=== PATIENT | male | born 1980 | race Hispanic/Latino ===

== ENCOUNTER 2017-06-18 17:33 | Inpatient (IN) | payer OTHER, SELFPAY ==
[~2017-06-18] VITALS: Ht 188 cm; Wt 113.4 kg
[2017-06-18] MEDS ORDERED: ZESTRIL10 MG PO (18:35)
[2017-06-18] MEDS ORDERED: ATORVASTATIN CA10 MG PO (18:35)
[2017-06-18] MEDS ORDERED: GLUCOPHAGE1000 MG PO (18:35)
[2017-06-18] MEDS ORDERED: SULFAMETHOXAZO1 EAC1 PO (18:36)
[2017-06-18] MEDS ORDERED: KEFLEX500 MG PO (18:36)
[2017-06-18] MEDS ORDERED: MINOCIN100 MG PO (18:36)
--- NOTE | 2017-06-18 19:10 | NUR ---
DIRECT ADMIT TO FLOOR @ 1800 FOR MONICA ABSCESS TO LEFT INNER THIGH, LEFT SIDE OF SCROTUM APPEARS TO BE DRAINING PURULENT DRAINAGE, PROVIDED PATIENT WITH GAUZE AND MARILU PADS TO SOAK UP DRAINAGE. NOTED A POSSIBLE VENOUS ULCER TO RIGHT SIDE OF LOWER LEG. PATIENT SAID " IT HAS BEEN THERE FOR OVER A YEAR". PROVIDED CHUCKS PAD FOR DRAINAGE. DISCUSSED WITH PATIENT BEING NPO, PATIENT VERBALIZED UNDERSTANDING. IV STARTED TO LEFT FA 20 G, [facility] AND SENT. 1L LR BOLUS INFUSING. LUNG SOUNDS CLEAR, HR REG. PATIENT IS DM TYPE 2, WILL BE INFUSING D5LR IV CONTINUOUSLY. PATIENT RATES PAIN 5/10 ON PAIN SCALE, REPORTS PAIN COMES AND GOES, ADMINISTERED 2MG IV MORPHINE. NO IMPROVEMENT WITH PAIN, REPORT HANDOFF TO BRIDGER SIERRA WHO WILL RESUME CARE.
--- NOTE | 2017-06-18 20:19 | NUR ---
RECIEVED REPORT FROM DAY SHIFT. PATIENT IS RESTIN IN BED WATCHING TV. PATIENT RATES PAIN AT A 4/10. DENIES THE NEED FOR PAIN MEDICATION. PATIENT IS CURRENTLY RECEIVEIN G A BOLUS. CALL LIGHT IN REACH.
--- NOTE | 2017-06-18 23:20 | NUR ---
PATIENT ASSESMENT COMPLETED. PATIENT GIVEN PRN PAIN MEDICATION PER ORDER. PATIENT PRN PAIN MEDICATION FOR 5/10 PAIN IN GROIN AREA. PATIENT GIVEN EVENING MEDICATIONS PER ORDER. PATIENT HAS FAMILY IN THE BEDSIDE. PATIENT IS AAOX3. PATIENT DENIES ANY FURTHER NEEDS AT THIS TIME. CALL LIGHT IN REACH.
--- NOTE | 2017-06-19 00:23 | NUR ---
PATIENT PROVIDED WITH URINAL. PATIENT ABLE TO VOID QS. PATIENT DENIES ANY FURTHER NEEDS. CALL LIGHT IN REACH.
--- NOTE | 2017-06-19 03:00 | NUR ---
PATIENT GIVEN MEDICATIONS PER ORDER. PATIENT GIVEN PRN PAIN MEDICATION FOR 5/10 SCROTAL PAIN. PATIENT DENIES ANY FURTHER NEEDS. CALL LIGHT IS WITHIN REACH.
--- NOTE | 2017-06-19 04:32 | NUR ---
PATIENT IS RESTING IN BED WITH EYES CLOSED, RR17. CALL LIGHT IN REACH.
--- NOTE | 2017-06-19 05:25 | NUR ---
PATIENT RESTED WELL THROUGHOUT THE SHIFT. PATIENT IS AAO X3. PATIENT RECEIVE X1 PRN TORADOL AND X1 PRN MORPHINE FOR PAIN IN SCROTAL AREA. PATIENT IS A SBA AND IS STEADY ON HIS FEET.
--- NOTE | 2017-06-19 06:38 | NUR ---
PATIENT RATES PAIN AT A 3/10 AND DENIES THE NEED FOR PAIN MEDICATION AT THIS TIME. PATIENTS CONSENT SIGNED AND PLACED ON THE FRONT OF THE CHART. PATIENT HAS LR WITH STRAIGHT TUBING AND PRE OP CHECKLIST STARTED. PATIENT DENIES ANY NEEDS CALL LIGHT IN REACH.
--- NOTE | 2017-06-19 08:00 | NUR ---
PATIENT REFUSED TO SHOWER, STATED " THIS MORPHINE HAS GIVEN ME A REAL HEADACHE AND TO SHOWER AND HAVE TO STAND WOULD BE JUST TOO MUCH". PROVIDED PATIENT WITH WIPES, RADHA FUNEZ ASSISTED WITH WIPE DOWN. LINENS CHANGED, FRESH GOWN. LR WITH ST. TUBING HANGING. IV ANTIBIOTICS INFUSING. ADMINISTERED IV TORADOL AND 4MG OF IV MORPHINE THIS MORNING, CBG 251 ADMINISTERED 5 UNITS OF INSULIN. PROVIDED EDUCATION. PLACED ABD PAD BETWEEN LEFT INNER THIGH AND SCROTUM SECONDARY TO ABSCESS DRAINING, NO ODOR NOTED, DRAINAGE APPEARS SEROSANGUINIOUS. DISCUSSED WHAT TO EXPECT AFTER SURGERY AND INSTRUCTED PATIENT TO USE IS.
--- NOTE | 2017-06-19 10:08 | NUR ---
PT IS RESTING IN BED CURRENTLY TALKING TO ANETHESIA NURSE, CASIMIRO. VITALS TAKEN AND PT HAS HAD SURGICAL WIPE DOWN. VITALS TAKEN. PT DID NOT NEED ANYTHING AT THE MOMENT
--- NOTE | 2017-06-19 11:11 | NUR ---
MED REC COMPLETE WITH LAURI REFILL HISTORY. ATORVASTATIN, LISINOPRIL, METFORMIN, AND MINOCYCLINE PRESCRIBED ON , BUT NOT YET PICKED UP BY PATIENT.
--- NOTE | 2017-06-19 14:22 | NUR ---
PATIENT LEFT FOR SURGERY 1400, IV ANTIBIOTIC SENT WITH OR NURSE MANUEL. 3 UNITS ADMINISTER FOR CBG 191 PER SLIDING SCALE. RATES PAIN 6/10 ON PAIN SCALE, DENIES NEED FOR PAIN MEDICATION.
--- NOTE | 2017-06-19 15:06 | NUR ---
PT IS STILL IN SURGERY
--- NOTE | 2017-06-19 15:40 | NUR ---
06/19/17 1540 Sydney Koch 1536 PATIENT ARRIVES TO PACU UNRESPONSIVE TO VERBAL OR TACTILE STIMULI. ORAL AIRWAY IN PLACE, MASK AT 10 LITERS.
--- NOTE | 2017-06-19 16:30 | NUR ---
PATIENT BACK TO ROOM, REPORT HANDOFF FROM SUMEET SIERRA. PATIENT AWAKE, RATES PAIN 0/10 ON PAIN SCALE. CAN MOVE KNEES AND LOWER LEGS BACK AND FORTH ON BED, DENIES FEELING SENSATION OF TOES. NOTED SOME CARLOS RED DRAINAGE TO GAUZE IN NET UNDERWEAR. PROVIDED PATIENT WITH ICE WATER AND JELLO. NO COMPLAINTS OF NAUSEA, VS STABLE.
--- NOTE | 2017-06-19 17:09 | NUR ---
CBG 145, IV FLUIDS INFUSING. PATIENT DROWSY. RESTING WITH EYES CLOSED. NO COMPLAINTS OF PAIN AT THIS TIME. VS STABLE.
--- NOTE | 2017-06-19 17:44 | NUR ---
PATIENT EATING SOLID FOOD, NO COMPLAINTS OF NAUSEA, CONTINUES TO RATE PAIN 0/10 ON PAIN SCALE. PATIENT STATED " I AM STARTING TO HAVE THE URGE TO PEE, WILL TRY AFTER I AM DONE EATING." MOTHER AT BEDSIDE. SOME NEW DRAINAGE TO PAD, NOT SATURATED AT THIS TIME. NOTED NEW WOUND CARE ORDERS.
--- NOTE | 2017-06-19 18:09 | NUR ---
PT IS RESTING IN BED WITH CALL LIGHT IN REACH. PT ATE DINNER AND IS WORKING ON DRINKING FLUIDS, HAS NOT URINATED YET.
--- NOTE | 2017-06-19 18:37 | NUR ---
PATIENT ATTEMPTED TO URINATE, STATES "THE URGE IS THERE, PLEASE GIVE ME ANOTHER 30 MINUTES" IS NOW DRINKING MORE WATER. CHANGED GAUZE TO SURGICAL SITES, GAUZE LIGHTLY SATURATED WITH CARLOS RED BLOOD. PATIENT TOLERATED TX WELL.
--- NOTE | 2017-06-19 18:50 | NUR ---
PATIENT STATES HIS PAIN IS 3/10 ON PAIN SCALE. ADMINISTERED ONE TAB OF PERCOCET PER PATIENT REQUEST, HE STATED " I THINK 2 IS TOO MUCH, LETS START WITH ONE". PROVIDED FRESH ICE WATER.
--- NOTE | 2017-06-19 23:25 | NUR ---
PATIENT SITS AT SIDE OF BED, PATIENT THEN STANDS AT SIDE OF BED. AMBULATES IN ROOM AT SIDE OF BED.
--- NOTE | 2017-06-19 23:26 | NUR ---
DRESSING TO LEFT GROIN AND PERIANAL I&D SITES CHANGED. GAUZE FLUFFS PLACED WITH ABD PADS COVERING AND SECURED WITH MESH UNDERWEAR.
--- NOTE | 2017-06-20 02:20 | NUR ---
PATIENT C/O BREAKTHRU PAIN /, MEDICATED WITH IV MORPHINE. IV ABX STARTED AND BS CHECKED. DRESSING TO GROIN IN PLACE NON SATURATED.
--- NOTE | 2017-06-20 05:41 | NUR ---
PATIENT HAS RESTED WELL DURING THE NIGHT. ADDRESSED PAIN THROUGH OUT THE NIGHT. 1 EPISODE OF BREAK THRU PAIN MEDICATED WITH IV MORPHINE. DRESSING CHANGED X 1 DURING THE NIGHT. SANGUINEOUS DRAINAGE FROM I&D SITES TO LEFT SIDE OF GROIN AND PERINEUM. PATIENT HAS Q6 BLOOD SUGAR CHECKS AND IV ABX INFUSIONS.
--- NOTE | 2017-06-20 07:05 | NUR ---
BEDSIDE HANDOFF REPORT RECEIVED FROM AIR GUN OPERATOR RN. PT SLEEPING, LEFT UNDISTURBED.
--- NOTE | 2017-06-20 08:30 | NUR ---
PT RESTING IN BED. PT STATES PAIN 2/10, WORSE WITH MOVEMENT. PT LUNG SOUNDS CLEAR, ON ROOM AIR. PT BLOOD GLUCOSE 223, GIVEN 3 UNITS SS INSULIN. PT BOWEL TONES ACTIVE, DENIES NAUSEA, TOLERATING ADA DIET. DRESSING TO PERINEAL ABCESS INTACT, SMALL AMOUNT OF SEROSANGUINOUS DRAINAGE TO ABD PAD. IV ABX INFUSING. PT WITH SCDS IN PLACE. PT DENIES NEEDS AT THIS TIME.
--- NOTE | 2017-06-20 10:24 | NUR ---
PT IS RESTING IN BED. PT AGREED TO SHOWER AFTER LUNCH. PT ASKED FOR MORE ICE WATER
--- NOTE | 2017-06-20 14:45 | NUR ---
PT ASSISTED WITH SETUP OF SOAP SITZ BATH. PT RATING PAIN 5/10 AFTER SHOWER AND BATH, REQUESTING PAIN MEDICATION, GIVWN 2 TABS NORCO. PT RESTING IN BED. DRESSING APPLIED TO ABCESS WOUNDS. PT VOICING CONCERN OF UPPER THIGH ABCESS NOT DRAINING, STATES IT HURTS AND IS FIRM. WOUND ASSESSED, REDNESS AND SWELLING AROUND DRAIN SITE, APPROXIMATELY 6 IN IN DIAMETER. GROIN AND PERIANAL ABCESS WITH DRAINS INTACT. ABD PAD AND BRIEFS PLACED. PT LUNG SOUNDS CLEAR, ON ROOM AIR. PT TOLERATING ADA DIET, DENIES NAUSEA. UP INDEPENDENT IN ROOM. PT DENIES NEEDS AT THIS TIME.
--- NOTE | 2017-06-20 14:52 | NUR ---
PT HAS SHOWERED AND IS NOW RESTING IN BED. PT COMPLAINED OF PAIN IN GROIN AREA, NURSE AWARE
--- NOTE | 2017-06-20 17:44 | NUR ---
PT GIVEN 4 UNITS SS INSULIN AND 3 UNITS WITH MEALS, BLOOD GLUCOSE 192. PT EATING DINNER. PT STATES PAIN IS SUBSIDING. PT DENIES NEEDS AT THIS TIME.
--- NOTE | 2017-06-20 18:07 | NUR ---
PT ON ROOM AIR, LUNG SOUNDS CLEAR. PT TOLERATING ADA DIET, DENIES NAUSEA. PT AFEBRILE. PT TRANSITIONED TO ORAL ABX. PT SHOWERED AND SITZ BATH COMPLETED. NEW ABD PADS PLACED TO GROIN AND PERINEUM. PT INDEPENDENT IN ROOM. PT VOIDING QS. PAIN MANAGED WITH 2 TABS NORCO.
--- NOTE | 2017-06-20 18:50 | NUR ---
PT IS RESTING IN BED WITH CALL LIGHT IN REACH. PT DID NOT NEED ANYTHING ELSE AT THE MOMENT
--- NOTE | 2017-06-20 19:10 | NUR ---
BEDSIDE REPORT RECEIVED FROM OFFGOING NURSE. PT LYING IN BED WITH SIGNIFICANT OTHER AT BEDSIDE. PT REPORTS HARDNESS AT L GOING I&D SITE, SIGNIFICANT OTHER WONDERING IF SITE APPEARS DIFFERENT FROME EARLIER. SITE ASSESS BY OFFOING NURSE AND THIS POWER GENERATION EQUIPMENT REPAIRER. OFFGOING NURSE CONFIRMS THAT AREA LOOKS THE SAME PREVIOUS ASSESSMENTS. PT DENIES NEEDS AT THIS TIME. CALL LIGHT WITHIN REACH.
--- NOTE | 2017-06-20 20:20 | NUR ---
PT ASSESSMENT COMPELTED. PT RATES PAIN 4-5/10 TO GROIN, MONICA AREA. PRN PAIN MEDICATION ADMINISTERED. ATTENDS IN PLACE, SMALL AMOUNT OF SANGUINOUS DRAINAGE NOTED TO ABD PAD OVER L GROIN. WOUNDS TO RLE DRY. PT INDEPENDENTLY CHECKS SUGAR AND ADMINISTERS INSULIN. ICE WATER REFILLED. PT DENIES OTHER NEEDS AT THIS TIME. CALL LIGHT WITHIN REACH.
--- NOTE | 2017-06-20 23:47 | NUR ---
PT RESTING IN BED WITH EYES CLOSED. RESPIRATIONS EVEN AND UNLABORED. PT APPEARS TO BE SLEEPING. CALL LIGHT WITHIN REACH.
--- NOTE | 2017-06-21 02:35 | NUR ---
PT ASSESSMENT COMPLETED. PT RESTING WITH EYES CLOSED, WAKES EASILY. PT DENIES PAIN. SMALL AMOUNT OF SANGUINOUS DRAINAGE PRESENT TO ABD PADS COVERING I&D SITES. ATTENDS REMAINS IN PLACE. PT DENIES FURTHER NEEDS, CALL LIGHT WITHIN REACH.
--- NOTE | 2017-06-21 04:29 | NUR ---
PT SLEPT THROUGHOUT SHIFT. PRN PAIN MEDICATION GIVEN X 1 AT BEGINNING OF SHIFT. ABD PADS TO GROIN AND PERINEUM WITH SMALL AMOUNT OF RED DRAINAGE PRESENT. PT WEARING ATTENDS TO KEEP ABD PADS IN PLACE. PT DECLINES SITZ BATH THIS SHIFT. USES URINAL INDEPENDENTLY. UO QS.
--- NOTE | 2017-06-21 07:00 | NUR ---
BEDSIDE HANDOFF REPORT RECEIVED FROM PERSONNEL AND PAYROLL TECHNICIAN RN. PT RESTING IN BED.
--- NOTE | 2017-06-21 08:30 | NUR ---
PT RESTING IN BED. PT DENIES PAIN AT REST, RATES PAIN 5/10 WITH ACTIVITY, DISCUSSED PAIN MANAGEMENT WITH PT, PT DENIES NEED FOR MEDICATION AT THIS TIME. PT TOLERATING ADA DIET, DENIES NAUSEA, BLOOD GLUCOSE 179 GIVEN 7 UNITS INSULIN AND 10 UNITS LEVEMIR. PT LUNG SOUNDS CLEAR, ON ROOM AIR. PT DENIES DIZZINESS, INDEPENDENT IN THE ROOM. PT VOIDING QS. BOWLE TONES ACTIVE. PULSES PALPABLE. PT DENIES NEEDS AT THIS TIME. ASSISTED WITH ORDERING BREAKFAST.
[2017-06-21] MEDS ORDERED: MINOCYCLINE HC100 MG PO (09:40)
[2017-06-21] MEDS ORDERED: OXYCODON-ACETA1 EAC2 PO (09:41)
[2017-06-21] MEDS ORDERED: MOTRIN IB200 MG PO (09:45)
[2017-06-21] MEDS ORDERED: NOVOLOG MI100 UNIT/2 SUB-Q (09:45)
[2017-06-21] MEDS ORDERED: NOVOLIN 70100 UNIT/1 SUB-Q (10:23)
--- NOTE | 2017-06-21 11:13 | NUR ---
DISCHARGE INSTRUCTIONS COMPLETED WITH PT. DETAILED EDUCATION ON HEBICLEANSE SITZ BATHS, PROVIDED WITH CLEAN BATH KIT, HEBICLEANSE SOAP AND ABD PADS. PT VERBALIZED UNDERSTANDING OF SITZ. IV CATH REMOVED. VSS. PT TO GET DRESSED AND COLOECT BELONGINGS. PRESCRIPTIONS PROVIDED FOR PERCOCET.
--- NOTE | 2017-07-04 10:25 | DS ---
[facility] [address] [facility] [place], [place] [address] Signed ADMIT DATE: 06/18/2017 DISCHARGE DATE: 06/21/2017 REASON FOR ADMISSION: This 36-year-old white man has insulin-dependent diabetes mellitus and has a hemoglobin A1c level of greater than 10. I was called by ARELY Wooten through Dr. Abdullahi's office as he was noted to have a left medial upper thigh abscess on her outpatient evaluation. He was seen in my office on an urgent walk-in basis at the end of the day and recognized to have significant suppurative changes of the perineum including the l eft medial thigh. It appears that he has longstanding hidradenitis suppurativa, though it has never been characterized that way. He was admitted for further evaluation and care. PHYSICAL EXAMINATION: GENERAL: Pertinent physical exam showed a bearded somewhat obese white man, who looked to be not systemically toxic, so was quite uncomfortable. NECK: Trachea midline. CHEST: Clear. HEART: Regular without murmur. ABDOMEN: Obese and soft. : Examination of perineum showed an abscess in the medial upper inner thigh as well as numerous variably draining sinuses and abscesses of the perineum including the midline posterior scrotal raphae. EXTREMITIES: He had no sign of lower extremity edema. LABORATORY STUDIES: Showed a white count of 8.0, hematocrit of 44.9, platelets of 321,000. Chem profile was not obtained, but fasting blood sugar showed a blood sugar of 192. HOSPITAL COURSE: He was admitted, given broad-spectrum antibiotic meropenem. His electrolytes were evaluated on the evening of admission, which showed a glucose of 321. Sliding-scale insulin schedule was outlined for him. Liver enzymes were noted to be normal. His creatinine was 0.86. The following day, he was found to be well resuscitated and was taken to operation for incision and drainage of the left upper medial thigh abscess as well as unroofing and drainage of other perineal abscesses and sinus tracts. Four yellow vessel loop drains were placed in the perineum and the left upper medial thigh. Postoperatively, he was managed with Sitz baths and continued IV antibiotics. Oral Electronically Signed By: CASIMIRO ESTRADA MD 07/04/17 1025 PATIENT NAME: HAIDER DE LEÓN DISCHARGE SUMMARY DATE OF : 76 PHYSICIAN: CASIMIRO ESTRADA MD REPORT #: [id number] REPORT IS CONFIDENTIAL AND NOT TO BE RELEASED WITHOUT AUTHORIZATION [facility] [address] [place], [place] [address] Signed antibiotics were initiated on postoperative day 1, which included resumption of minocycline 100 mg p.o. daily and Bactrim 1 tablet p.o. b.i.d. Consultation was undertaken with Dr. Valdez to better manage his hyperglycemia. At this point, his serum glucose was in the low 200 range. It appears that the patient has difficulty of achieving a good schedule for blood sugar control on the basis of lack of insurance and other factors, though has seen an deployment specialist in [place] previously. By time of discharge, he is ambulating well, tolerating an ADA solid diet, has good control of the infectious process of the perineum and has tolerated Sitz baths and regular shower. His careful instructions for home care will include Hibiclens showering on a daily basis as well as Sitz baths daily, plain or with Hibiclens for the perineum. He should avoid tight-fitting clothes. An instruction regarding hidradenitis suppurativa was given to him. We will see him back in approximately 2-3 weeks in the office and likely pull drains at that time. I have asked him to make an appointment with Madison Olmstead and Dr. Abdullahi as well in the near future for further consideration of blood sugar control measures. DISCHARGE MEDICATIONS: Will include: Minocycline 100 mg p.o. daily. Percocet 2 tabs p.o. q.4 hours p.r.n. pain #30. Insulin NovoLog type 70/30, 30 units subcutaneously q.a.m. for diabetes. Motrin 600 mg p.o. q.6 hours p.r.n. pain. Continuance of medication including metformin (Glucophage 1000 mg p.o. daily), lisinopril 10 mg p.o. daily, atorvastatin 10 mg p.o. daily, cephalexin 500 mg capsule one p.o. t.i.d. for 10 days, and continuance of Bactrim one tab p.o. b.i.d. for 10 days. FOLLOWUP PLANS: He is to return to see me in 2-3 weeks as described and Madison Olmstead in coming week regarding diabetes. DISCHARGE DIAGNOSES: Acute upper medial left thigh abscess and associated incompletely drained perineal and retro-scrotal abscesses related to hidradenitis suppurativa. Insulin-dependent diabetes mellitus. As regards return to work, he is written to go back to work on June 30, 2017. If there are problems, he will let me know sooner. Electronically Signed By: CASIMIRO ESTRADA MD 07/04/17 1025 PATIENT NAME: HAIDER DE LEÓN DISCHARGE SUMMARY DATE OF : 76 PHYSICIAN: CASIMIRO ESTRADA MD REPORT #: [id number] REPORT IS CONFIDENTIAL AND NOT TO BE RELEASED WITHOUT AUTHORIZATION [address] [place] [address] Signed MD BALDEMAR Jhaveri/Alexys /[id number] cc: ARELY Cordoba Electronically Signed By: CASIMIRO ESTRADA MD 07/04/17 1025 PATIENT NAME: HAIDER DE LEÓN DISCHARGE SUMMARY DATE OF : 76 PHYSICIAN: CASIMIRO ESTRADA MD REPORT #: [id number] REPORT IS CONFIDENTIAL AND NOT TO BE RELEASED WITHOUT AUTHORIZATION
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
--- NOTE | 2017-07-04 10:25 | OR ---
[facility] [address], [place] [address] Signed DATE OF SERVICE: 06/19/2017 PREOPERATIVE DIAGNOSES: Left groin abscess. Multiple perineal abscesses and clinical evidence of hidradenitis suppurativa. Insulin-dependent diabetes mellitus. POSTOPERATIVE DIAGNOSES: Left groin abscess. Multiple perineal abscesses and clinical evidence of hidradenitis suppurativa. Insulin-dependent diabetes mellitus. PROCEDURE: Exam under anesthesia. Incision and drainage of left medial groin abscess with cultures and placement of yellow vessel loop (seton like). Incision and drainage and debridement of perineal abscesses x3 with placement of yellow vessel loop seton. SURGEON: Casimiro Estrada MD. ANESTHESIA: General endotracheal (Casimiro De Guzman CRNA). POSITION: Lithotomy in stirrups. DRAINS: Yellow vessel loops x4. INDICATION: This 36-year-old diabetic man is a patient of Madison Olmstead and Dr. Marc Abdullahi. He has had many years of episodic furuncles and boils of the perineal area with spontaneous drainage and so forth. He was recently seen by Ms. Olmstead at Dr. Abdullahi's office with what appeared to be an abscess in the left medial groin. After conferring with Dr. Abdullahi, referral was made and he was seen in my office yesterday on an urgent basis. Clearly an abscess of the left medial groin is noted. He also had numerous pock cardona of the perineum in several areas of spontaneous weeping and what appeared to be undermining subdermal sinus tracts and abscess formation. He was admitted and given broad-spectrum antibiotics, fluid resuscitation, so forth and here now to undergo exam under anesthesia, as well as drainage of the left groin abscess and drainage and debridement of other perineal sinus tracts and abscesses. He understands well the risks of bleeding, infection, and recurrence critically as this may well represent hidradenitis suppurativa manifestations. He wishes to proceed. Electronically Signed By: CASIMIRO ESTRADA MD 07/04/17 1025 PATIENT NAME: HAIDER DE LEÓN OPERATIVE REPORT DATE OF : 76 PHYSICIAN: CASIMIRO ESTRADA MD REPORT #: [id number] REPORT IS CONFIDENTIAL AND NOT TO BE RELEASED WITHOUT AUTHORIZATION [facility] [address], [place] [address] Signed FINDINGS: The groin abscess clearly was a purulent abscess and not spontaneously draining. There were several other fibrotic perineal sinus tracts that were problematic and application of yellow vessel loop setons to afford improved drainage was undertaken. Four such drains were placed. There was spontaneous drainage of some of the areas particularly in the region of the midline anterior to the anal canal. By conclusion, all infected sinus tracts and abscesses proper have been drained. PROCEDURE: The patient was brought to the operating room, given a general anesthetic in the supine position. The lithotomy position was then assumed. The perineum and groin particularly on the left were prepared with a chlorhexidine solution and draped sterilely. Photographs were taken. Examination of the perineum showed several chronic dermal scarring areas particularly on the right groin area but this was not the area of active infection at this time. There were sev eral sinuses on the left perineum and groin area that were easily undermined with a hemostat showing purulent material. Gram stained and cultures were obtained. In the left groin, proper was a swelling several cm in size for which incision was undertaken with an 11 blade and egress of purulent material was noted. This was Gram stained and cultured as well. A counter incision was made and a yellow vessel loop passed through this area. The undermined areas were highly typical of hidradenitis suppurativa with acute infection. Three sets tunneling areas were drained of their inflammatory fluid and yellow vessel loop was tied in a loop in a seton like configuration. It was ascertained that there were no other undrained on unlooped areas of infection. Fluff gauze were applied to the perineum as were shorts and patient was ultimately returned to neutral position, extubated, and taken to recovery room in good condition. Special note: A spinal anesthetic was given prior to the general anesthetic (single shot spinal) and therefore, his sensation for lower extremity movement remains to be determined. MD BALDEMAR Jhaveri/Momol /[id number] Electronically Signed By: CASIMIRO ESTRADA MD 07/04/17 1025 PATIENT NAME: HAIDER DE LEÓN OPERATIVE REPORT DATE OF : 76 PHYSICIAN: CASIMIRO ESTRADA MD REPORT #: [id number] REPORT IS CONFIDENTIAL AND NOT TO BE RELEASED WITHOUT AUTHORIZATION [address] [address] Signed cc: Dr. Madison Rodriguez PA Electronically Signed By: CASIMIRO ESTRADA MD 07/04/17 1025 PATIENT NAME: HAIDER DE LEÓN OPERATIVE REPORT DATE OF : 76 PHYSICIAN: CASIMIRO ESTRADA MD REPORT #: [id number] REPORT IS CONFIDENTIAL AND NOT TO BE RELEASED WITHOUT AUTHORIZATION
[2017-10-14] MEDS ORDERED: NOVOLOG FL100 UNIT/1 SUB-Q (11:01)
[2017-10-14] MEDS ORDERED: TRESIBA FL100 UNIT/1 (11:02)
== END 2017-06-21 11:45 | disposition home or self-care (01) | DRG 581 ==
LOC: MS 17:33
PROVIDERS: ADMIT Surgery
PROC: 0H99XZZ Drainage of Perineum Skin, External Approach (ICD-10-PCS; 2017-06-19)
PROC: 0H9AXZZ Drainage of Inguinal Skin, External Approach (ICD-10-PCS; principal; 2017-06-19 15:00)
DX: L02.215 Cutaneous abscess of perineum (principal); I10 Essential (primary) hypertension; E78.5 Hyperlipidemia, unspecified; E11.65 Type 2 diabetes mellitus with hyperglycemia; Z79.4 Long term (current) use of insulin; L02.214 Cutaneous abscess of groin; L73.2 Hidradenitis suppurativa
CPT/HCPCS: 00902; 80053; 85025; 87070; 87075; 87076; 87077; 87185; 87186; 87205; 94760; J1100; J1885; J2185; J2250; J2270; J2405; J2704; J2765; J3010; J7120

== ENCOUNTER 2017-10-15 07:05 | Day surgery (SDC) | payer OTHER ==
[~2017-10-15] VITALS: Ht 190.5 cm; Wt 108.9 kg
[~2017-10-15 07:05] MED LIST: ATORVASTATIN CA10 MG PO; GLUCOPHAGE1000 MG PO; KEFLEX500 MG PO; MINOCIN100 MG PO; MINOCYCLINE HC100 MG PO; MOTRIN IB200 MG PO; NOVOLIN 70100 UNIT/1 SUB-Q; NOVOLOG FL100 UNIT/1 SUB-Q; NOVOLOG MI100 UNIT/2 SUB-Q; OXYCODON-ACETA1 EAC2 PO; SULFAMETHOXAZO1 EAC1 PO; TRESIBA FL100 UNIT/1; ZESTRIL10 MG PO
[2017-10-15] MEDS ORDERED: OXYCODON-ACETA1 EAC2 PO (09:49)
--- NOTE | 2017-10-16 16:39 | OR ---
[facility] [address] [place], [place] [address] Signed DATE OF OPERATION: 10/15/2017 SURGEON: Casimiro Estrada MD PREOPERATIVE DIAGNOSES: 1. Advanced hidradenitis suppurativa of the perineum. 2. Recurrent infected subdermal sinuses of perineum. POSTOPERATIVE DIAGNOSES: 1. Advanced hidradenitis suppurativa of the perineum. 2. Recurrent infected subdermal sinuses of perineum. PROCEDURE: 1. Exam under anesthesia. 2. Debridement and drainage of perineal abscess cavities. 3. Placement of yellow vessel loop seton x4. 4. Curettage and debridement of perineal sinuses. ANESTHESIA: General LMA, Chayito Dunbar CRNA and local 15 mL of 0.25% Marcaine with epinephrine. INDICATION: This 37-year-old, white man is well known to me from the past having undergone emergency drainage of advanced perineal abscess of the perineum in May of 2017. Upon close review of his situation, he has had quite obviously hidradenitis suppurativa of the perineum for quite some time. Though he had marked improvement after drainage of complex subdermal abscesses of the perineum and placement of yellow vessel loop drainage setons, he has had recurrent symptoms despite recent antibiotic therapy with Flagyl. Examination in the office recently showed a gush of bloody inflammatory fluid from the left perineal groin crease areas where hidradenitis suppurativa is noted. In hopes of controlling his drainage, consideration has been made for exam under anesthesia with placement of a closed suction drain as appropriate or other indicated procedures as needed. The risks of bleeding, infection, need for additional treatment and so forth were all reviewed with him. He understands and wished to proceed for exam under anesthesia at this time with interventions as appropriate to improve his drainage problem. FINDINGS: Much of the perineum is scarred from prior infectious changes. There is a sinus not connected to any other area in the right perineum and on the left side, several contiguous subdermal infected fluid collections. These were drained, curetted, and Electronically Signed By: CASIMIRO ESTRADA MD 10/16/17 1639 PATIENT NAME: HAIDER DE LEÓN OPERATIVE REPORT DATE OF : 76 PHYSICIAN: CASIMIRO ESTRADA MD REPORT #: [id number] REPORT IS CONFIDENTIAL AND NOT TO BE RELEASED WITHOUT AUTHORIZATION [facility] [address] [place], [place] [address] Signed secured with a yellow vessel loops. One sinus in particular in the upper left groin had a connection to the inguinal area nearly and a yellow vessel loop for drainage was placed there. A close suction drain was not feasible or beneficial and therefore, was not performed. Four setons were placed yellow vessel loop type. Good drainage of all at risk areas has been accomplished. DESCRIPTION OF PROCEDURE: The patient was brought to the operating room, given a general LMA-type anesthetic. Preoperative antibiotic cefoxitin was given. Sequential compression device stockings used and heparin subcutaneously administered. With all due care, stirrups were applied and leg spread apart as appropriate to expose the perineum and groin area. The genitalia and perineum were prepared with Betadine based solution and draped sterilely. Photographs were taken of the initial lesions. Examination in the left perineum with a hemostat showed some obviously episodic draining subdermal fluid collections. Purulent material was noted, but not copious in amount. Several such areas were identified and were essentially contiguous in the subdermal space. Yellow vessel loops were passed to secure these areas and provide better drainage. Debridement with electrocautery was undertaken and curettage undertaken in the inflammatory granulation tissue areas. In the upper most left perineum, a sinus tract from the groin was identified and a counter incision made and a yellow vessel loop seton placed there as well. Irrigation was undertaken in all of the areas. The sinus on the right perianal area was probed and did not have any connection elsewhere and is actually healing reasonably well and in particular noted that it was a much larger area when seen in May. 15 mL of 0.25% Marcaine was injected locally. A peripad was applied. He was ultimately extubated and transferred to recovery room in good condition. BLOOD LOSS: Minimal. COMPLICATIONS: None. PHOTOGRAPHS: Taken. Casimiro Estrada MD Electronically Signed By: CASIMIRO ESTRADA MD 10/16/17 1639 PATIENT NAME: HAIDER DE LEÓN OPERATIVE REPORT DATE OF : 76 PHYSICIAN: CASIMIRO ESTRADA MD REPORT #: [id number] REPORT IS CONFIDENTIAL AND NOT TO BE RELEASED WITHOUT AUTHORIZATION [facility] [address] [place] [id number] Signed BALDEMAR/EDMUNDO /[id number] cc: Madison Olmstead PA-C Electronically Signed By: CASIMIRO ESTRADA MD 10/16/17 1639 PATIENT NAME: HAIDER DE LEÓN OPERATIVE REPORT DATE OF : 76 PHYSICIAN: CASIMIRO ESTRADA MD REPORT #: [id number] REPORT IS CONFIDENTIAL AND NOT TO BE RELEASED WITHOUT AUTHORIZATION
== END 2017-10-15 17:30 | disposition home or self-care (01) ==
LOC: DS 07:05
PROVIDERS: Surgery
PROC: 0JBB0ZZ Excision of Perineum Subcutaneous Tissue and Fascia, Open Approach (ICD-10-PCS; principal; 2017-10-15 08:00)
DX: L73.2 Hidradenitis suppurativa (principal); L08.89 Other specified local infections of the skin and subcutaneous tissue; E11.9 Type 2 diabetes mellitus without complications; I10 Essential (primary) hypertension; F32.9 Major depressive disorder, single episode, unspecified; Z79.4 Long term (current) use of insulin; Z79.899 Other long term (current) drug therapy; Z98.890 Other specified postprocedural states
CPT/HCPCS: 00400; J0690; J2250; J2270; J2405; J2704; J3010; J7120

== ENCOUNTER 2020-10-16 08:25 | Day surgery (SDC) | payer OTHER ==
[~2020-10-16] VITALS: Ht 162.6 cm; Wt 120.9 kg
[~2020-10-16 08:25] MED LIST changes: +BACTRIM DS TAB1 EACH PO; +COZAAR25 MG PO; +FARXIGA5 MG PO; +FLUOXETINE HCL20 MG PO; +LEXAPRO10 MG PO; +METFORMIN HCL1000 MG PO; +ZOFRAN4 MG PO
[2020-10-16] MEDS ORDERED: WELLBUTRIN XL150 MG PO (08:58)
--- NOTE | 2020-10-16 10:19 | NUR ---
[facility] [facility] ARRIVED IN PACU SLEEPY WITH NO C/O'S. ABD SOFT AND PASSING FLATUS. BLOOD SUGAR 122. 1000 RESTING. REU. 1015 SITTING UP IN BED. ALL QUESTIONS ANSWERED ABOUT PROCEDURE.
--- NOTE | 2020-10-16 10:41 | NUR ---
PT ARRIVES FROM PACU AND PLACED IN RM 7. ICE WATER PROVIDED. PT RESTING IN LOCKED AND LOWERED BED, SIDE RAILS UP, CALL LIGHT WITHIN REACH, AT THE BEDSIDE. NO FURTHER REQUESTS AT THIS TIME.
--- NOTE | 2020-10-16 11:17 | NUR ---
PT RESTING. REU. GIRLFRIEND AT BEDSIDE.
--- NOTE | 2020-10-16 11:55 | NUR ---
PT USED THE CALL LIGHT WITH ASK WITH ASSISTANCE FROM A BOWEL MOVEMENT. PT CLEANED UP AND SAT UP AT THE SIDE OF THE BED. PT PROVIDED WITH ATTENDS TO GO HOME IN.
--- NOTE | 2020-10-16 12:16 | NUR ---
1200- DISCHARGE INSTRUCTIONS DISCUSSED WITH PT AND GIRLFRIEND. PT GETS DRESSED WITH ASSISTANCE OF GIRLFRIEND. 1210- PT LEFT THE UNIT VIA WHEELCHAIR. PT TRANSFERRED INDEPENDENTLY FROM WHEELCHAIR TO VEHICLE WITH NO COMPLICATIONS. GIRLFRIEND PROVIDED TRANSPORTATION
--- NOTE | 2020-10-17 08:21 | OR ---
[facility] [address] [place], [place] [address] Signed DATE OF OPERATION: 10/16/2020 SURGEON: Milagro Melendez MD PREOPERATIVE DIAGNOSIS: Intermittent diarrhea. POSTOPERATIVE DIAGNOSIS: Unremarkable colonoscopy. PROCEDURE: Colonoscopy with random cold biopsies. ESTIMATED BLOOD LOSS: None. INDICATIONS: Aly is a 40-year-old diabetic, who has been having trouble with lower abdominal pain and intermittent diarrhea. He said it comes about every other month or so. He is not sure what makes it better or worse. In the last 6 months, he seemed to be worse. He had been to his primary care provider. He has been on the same diabetic medications for quite some time. He has no family history of colon cancer or polyps. His primary care provider asked him to see me with respect to the above for colonoscopy and biopsies. In the office, I gave Sage a pamphlet on colonoscopy. We reviewed that together in detail. He understands the nature of the test along with the risks including, but not limited to gas bloating, crampy abdominal pain, bleeding, perforation requiring surgery, and missed diagnosis. He had expressed understanding and wished to proceed. PROCEDURE NOTE: Aly was taken into our endoscopy suite and placed in the left lateral decubitus position. He was given IV sedation with 6 mg of Versed and 125 mcg of fentanyl. A digital rectal exam was performed and this was unremarkable. The adult colonoscope was introduced and advanced all around into the cecum under direct visualization of camera without difficulty. His prep overall was average. He had a few areas of liquid stool most of that was suctioned out. We could easily see the appendiceal orifice and ileocecal valve. We had slowly withdrawn the scope. We took pictures throughout for photodocumentation. We took random cold biopsies throughout the colon for pathologic review. We had tried to pass the colonoscope into the terminal ileum several times without success. Once in the rectum, the scope had been retroflexed and there was no additional pathology above the anal canal. After this, the gas was suctioned out and Electronically Signed By: MILAGRO MELENDEZ MD 10/17/20 0821 PATIENT NAME: ALY DE LEÓN OPERATIVE REPORT DATE OF : 76 REPORT #: [id number] PHYSICIAN: MILAGRO MELENDEZ MD PCP: RUDY RUDOLPH PA-C REPORT IS CONFIDENTIAL AND NOT TO BE RELEASED WITHOUT AUTHORIZATION [address] [address] Signed the colonoscope removed. Sage tolerated procedure quite well. RECOMMENDATIONS: I will see Sage back in my office in 7 to 14 days to review his results. Milagro Melendez MD ALB/MODL /[id number] cc: NAIDA Ray MD Copies: RUDY RUDOLPH PA-C, ANDREW L MD ~ Electronically Signed By: MILAGRO MELENDEZ MD 10/17/20 0821 PATIENT NAME: ALY DE LEÓN OPERATIVE REPORT DATE OF : 76 REPORT #: [id number] PHYSICIAN: MILAGRO MELENDEZ MD PCP: RUDY RUDOLPH PA-C REPORT IS CONFIDENTIAL AND NOT TO BE RELEASED WITHOUT AUTHORIZATION
--- NOTE | 2020-10-18 10:16 | PATH ---
[facility] [address] [place], [place] [address] Signed SPECIMEN(S): A COLON SPECIMEN SOURCE: A. COLON CLINICAL HISTORY: Diarrhea/normal exam. Colonoscopy. MICROSCOPIC DESCRIPTION: Histologic sections of all submitted blocks are examined by light microscopy. These findings, together with the gross examination, support the pathologic diagnosis. FINAL PATHOLOGIC DIAGNOSIS: Colon, biopsy: - Fragments of colonic mucosa with no histopathologic abnormality. - Negative for active, chronic, or microscopic colitis. - Negative for dysplasia or malignancy. NAL:cml:C2NR GROSS DESCRIPTION: The specimen, labeled "Aly De León, #1," and designated on the requisition "random colon biopsy," is received in formalin and consists of four espostio soft tissue fragments that measure 0.3-0.4 cm in greatest dimension. The specimen is entirely submitted in cassette (A1). FB (under the direct supervision of a pathologist) The Gross Description was prepared using a voice recognition system. The report was reviewed for accuracy; however, sound-alike word errors, addition and/or deletions may occur. If there is any question about this report, please contact Client Services. PERFORMING LABORATORY: The technical component was performed by [employer] [facility], [address] [place] [id number] (Wood Machinist: Bhargavi Casas MD; CLIA# [id number]). [facility] [address] [address] (CLIA# [id number]). Diagnostician: Denita Egan MD Pathologist Electronically Signed 10/18/2020 PATIENT NAME: ALY DE LEÓN PATHOLOGY DATE OF : 76 REPORT #: [id number] PHYSICIAN: DARRIN PATHOLOGY PCP: RUDY RUDOLPH PA-C REPORT IS CONFIDENTIAL AND NOT TO BE RELEASED WITHOUT AUTHORIZATION [address] [address] Signed Copies: ~ PATIENT NAME: ALY DE LEÓN PATHOLOGY DATE OF : 76 REPORT #: [id number] PHYSICIAN: DARRIN PATHOLOGY PCP: RUDY RUDOLPH PA-C REPORT IS CONFIDENTIAL AND NOT TO BE RELEASED WITHOUT AUTHORIZATION
== END 2020-10-16 12:10 | disposition home or self-care (01) ==
LOC: DS 08:25 → OPS 08:25
PROVIDERS: ATTEND Colon & Rectal Surgery
PROC: 0DBE8ZX Excision of Large Intestine, Via Natural or Artificial Opening Endoscopic, Diagnostic (ICD-10-PCS; principal; 2020-10-16 09:15)
DX: R19.7 Diarrhea, unspecified (principal); I10 Essential (primary) hypertension; E11.9 Type 2 diabetes mellitus without complications; J45.909 Unspecified asthma, uncomplicated; F41.9 Anxiety disorder, unspecified; F32.9 Major depressive disorder, single episode, unspecified; E66.9 Obesity, unspecified; Z79.4 Long term (current) use of insulin; Z79.899 Other long term (current) drug therapy; Z88.8 Allergy status to other drugs, medicaments and biological substances; Z68.42 Body mass index [BMI] 45.0-49.9, adult
CPT/HCPCS: 99153; G0500; J2250; J3010; J7121

== ENCOUNTER 2021-05-30 21:19 | Emergency (ER) | payer OTHER ==
[~2021-05-30] VITALS: Ht 162.6 cm; Wt 120.7 kg
[~2021-05-30 21:19] MED LIST changes: +ONDANSETRON ODT4 MG PO; +OZEMPIC0.25 MG/0. SQ; +WELLBUTRIN XL150 MG PO
== END 2021-05-31 01:22 | disposition home or self-care (01) ==
LOC: ED 21:19
DX: N20.0 Calculus of kidney (principal); E11.42 Type 2 diabetes mellitus with diabetic polyneuropathy; I10 Essential (primary) hypertension; Z88.8 Allergy status to other drugs, medicaments and biological substances; Z79.899 Other long term (current) drug therapy; Z79.84 Long term (current) use of oral hypoglycemic drugs
CPT/HCPCS: 74176; 80053; 81001; 85025; 96374; 96375; 99284-25; J1885; J2405; J7121

== ENCOUNTER 2023-11-09 21:46 | Emergency (ER) | payer OTHER ==
[~2023-11-09] VITALS: Ht 188 cm; Wt 107.0 kg
[~2023-11-09 21:46] MED LIST changes: +DULOXETINE HCL30 MG PO; +LOMOTIL TABLET1 EACH PO; +ONDANSETRON ODT8 MG PO
[2023-11-09 22:18] LABS: BASOPHILS 0.4 % (0-2); EOSINOPHILS 1.9 % (0-6); HEMATOCRIT 43.1 % (35.0-50.0); HEMOGLOBIN 13.9 g/dL (12.0-18.0); MCH 27.6 (27-36); MCHC 32.2 g/dl (30-36); MCV 85.6 fl (81-99); MONOCYTES 5.6 % (0-12); NEUTROPHILS 78.1 % (39-80); PLATELET COUNT 380 K/uL (140-440); RBC 5.03 M/ul (4.3-5.7); RDW 14.4 (10.5-15.0)
[2023-11-09] MEDS ORDERED: ATORVASTATIN CA20 MG PO (22:27)
[2023-11-09 22:35] LABS: ALBUMIN 3.8 g/dL (3.4-5.0); ALBUMIN/GLOBULIN RATIO 0.54 (1.1-2.4); ANION GAP 15.2 (7-21); BILIRUBIN, TOTAL 0.7 ng/dL (0.2-1.0); BUN/CREATININE RATIO 9.14 (6.0-28.6); CALCIUM 10.7 mg/dL (8.5-10.1); CREATININE, SERUM 1.64 mg/dL (0.70-1.30); MAGNESIUM 2.2 mg/dL (1.8-2.4); POTASSIUM 4.2 mmol/L (3.5-5.1); PROTEIN, TOTAL 10.8 g/dL (6.4-8.2)
[2023-11-10 00:19] LABS: BILIRUBIN, URINE POSITIVE (negative); BLOOD/HGB, URINE SMALL (Negative); KETONE, URINE TRACE (Negative); LEUK ESTERASE, URINE NEGATIVE (negative); NITRITE, URINE NEGATIVE (negative)
[2023-11-10 00:23] LABS: EPITHELIAL CELLS, URINE SQUAMOUS 1+ /lpf (0-1+)
[2023-11-10 00:24] LABS: BACTERIA, URINE 1+ /hpf (negative); CRYSTALS, URINE NONE SEEN (0-1+)
[2023-11-10 00:25] LABS: REFLEX CULTURE, URINE No (No)
[2023-11-10] MEDS ORDERED: LOMOTIL TABLET1 EACH PO (00:57)
[2023-11-10 01:18] VITALS: BP 145/92
--- NOTE | 2023-11-10 06:06 | EKG ---
[facility] [address] [facility] [place] [address] Signed Normal sinus rhythm Right bundle branch block Left anterior fascicular block Bifascicular block Abnormal ECG When compared with ECG of 08-MAY-2023 13:00, Borderline criteria for Lateral infarct are no longer present Confirmed by MARLENE RUBIO MD ([id number]) on 11/10/2023 6:05:46 AM Electronically Signed By: MARLENE RUBIO 11/10/23 0605 PATIENT NAME: HAIDER DE LEÓN Electrocardiogram DATE OF : 76 PHYSICIAN: MARLENE RUBIO REPORT #: [id number] REPORT IS CONFIDENTIAL AND NOT TO BE RELEASED WITHOUT AUTHORIZATION
== END 2023-11-10 01:15 | disposition home or self-care (01) ==
LOC: ED 21:46
PROVIDERS: Internal Medicine
DX: E86.0 Dehydration (principal); E87.1 Hypo-osmolality and hyponatremia; E11.42 Type 2 diabetes mellitus with diabetic polyneuropathy; I10 Essential (primary) hypertension; E78.00 Pure hypercholesterolemia, unspecified; Z88.8 Allergy status to other drugs, medicaments and biological substances; Z79.899 Other long term (current) drug therapy; Z79.85 Long-term (current) use of injectable non-insulin antidiabetic drugs
CPT/HCPCS: 36415; 80053; 81001; 83735; 84484; 85025; 93005; 93010; 96374; 99284-25; J2405; J7121

== ENCOUNTER 2024-08-01 13:01 | Inpatient (IN) | payer OTHER ==
[~2024-08-01] VITALS: Ht 188 cm; Wt 107.0 kg
[~2024-08-01 13:01] MED LIST changes: +ATORVASTATIN CA20 MG PO; +PREDNISONE20 MG PO; +VENTOLIN HFA18 GM INH
[2024-08-01] MEDS ORDERED: VANCOMYCIN HCL/D5W 1 GM/270 ML PIGGYBACK KIT IV ONE (13:30)
[2024-08-01] MEDS ORDERED: ACETAMINOPHEN 500 MG TAB PO ONE (13:30)
[2024-08-01] MEDS ORDERED: HYDROmorphone HCL 1 MG/ML SYR IV ONE (13:30)
[2024-08-01] MEDS ORDERED: CEFEPIME HCL/D5W 2 GM/100 ML PIGGYBACK IV ONE (13:30)
[2024-08-01] MEDS ORDERED: ondansetron HCL 4 MG/2 ML VIAL IV ONE (13:30)
[2024-08-01] MEDS ORDERED: SODIUM CHLORIDE 0.9% 1,000 ML IV ONE (13:30)
[2024-08-01] MEDS ORDERED: SODIUM CHLORIDE 0.9% 1,000 ML IV PRN (13:30)
[2024-08-01 13:34] LABS: BASOPHILS 0.2 % (0-2); EOSINOPHILS 0.3 % (0-6); HEMATOCRIT 36.2 % (35.0-50.0); HEMOGLOBIN 11.7 g/dL (12.0-18.0); LYMPHOCYTES 10.5 % (24-44); MCH 26.5 (27-36); MCHC 32.3 g/dl (30-36); MCV 82.1 fl (81-99); MONOCYTES 9.2 % (0-12); NEUTROPHILS 79.8 % (39-80); PLATELET COUNT 231 K/uL (140-440); RDW 15.4 (10.5-15.0)
[2024-08-01 13:45] LABS: INR 1.23 (0.80-1.30); PARTIAL THROMBOPLASTIN TIME 34.5 Sec (22.9-41.3); PROTIME 14.8 Sec (11.2-14.2)
[2024-08-01 13:49] LABS: ALBUMIN 2.6 g/dL (3.4-5.0); ALBUMIN/GLOBULIN RATIO 0.41 (1.1-2.4); ANION GAP 10.5 (7-21); BILIRUBIN, TOTAL 1.2 ng/dL (0.2-1.0); BUN/CREATININE RATIO 11.53 (6.0-28.6); CALCIUM 9.3 mg/dL (8.5-10.1); CREATININE, SERUM 1.3 mg/dL (0.70-1.30); POTASSIUM 3.5 mmol/L (3.5-5.1)
[2024-08-01 15:41] LABS: BILIRUBIN, URINE POSITIVE (negative); BLOOD/HGB, URINE LARGE (Negative); KETONE, URINE TRACE (Negative); LEUK ESTERASE, URINE NEGATIVE (negative); NITRITE, URINE NEGATIVE (negative); PH, URINE 6.5 (5-7)
[2024-08-01 15:48] LABS: CRYSTALS, URINE NONE SEEN (0-1+); EPITHELIAL CELLS, URINE 0 /lpf (0-1+); RED BLOOD CELLS, URINE >50 /hpf (0-5)
[2024-08-01 15:49] LABS: CASTS, URINE GRANULAR 2+ \\lpf
[2024-08-01 15:50] LABS: BACTERIA, URINE 2+ /hpf (negative); COLLECTION TYPE, URINE CLEAN CATCH; REFLEX CULTURE, URINE Yes (No)
[2024-08-01 15:52] LABS: LACTIC ACID, BLOOD 0.7 mmol/L (0.4-2.0)
[2024-08-01] MEDS ORDERED: SODIUM CHLORIDE 0.9% 1,000 ML IV SCH ×2 (17:45→18:30)
[2024-08-01] MEDS ORDERED: ondansetron HCL 4 MG/2 ML VIAL IV PRN (17:45)
[2024-08-01] MEDS ORDERED: MORPHINE SULFATE 4 MG/ML VIAL IV PRN (17:45)
[2024-08-01] MEDS ORDERED: CEFTRIAXONE/SODIUM CHLORIDE 2 GM/100 ML PIGGYBACK IV SCH (18:23)
[2024-08-01 18:43] VITALS: BP 151/92
[2024-08-01] MEDS ORDERED: DEXTROSE 50% 50 ML SYR IV PRN ×2 (18:45)
[2024-08-01] MEDS ORDERED: DEXTROSE 5% 1,000 ML IV PRN (18:45)
[2024-08-01] MEDS ORDERED: GLUCAGON,HUMAN RECOMBINANT 1 MG/ML VIAL SUB-Q PRN (18:45)
[2024-08-01] MEDS ORDERED: IBLOOD GLUCOSE TEST STRIP 1 EA TEST XX PRN (18:45)
--- NOTE | 2024-08-01 20:00 | NUR ---
LABS DRAWN FROM IV SITE PER POLICY. PATIENT REQUESTED NOT TO HAVE LAB DRAW HE HAD BEEN POKED MULTIPLE TIMES. LABS DRAWN WITHOUT ISSUE. FIRE SUPERVISOR IN FOR ABD US.
[2024-08-01 20:13] LABS: CHOLESTEROL/HDL RATIO 3.5
--- NOTE | 2024-08-01 20:45 | NUR ---
PATIENT EATING FOOD BROUGHT TO HIM BY HIS MOTHER. DENIED ANY NEEDS OR CONCERNS AT THIS TIME.
[2024-08-01 21:00] VITALS: BP 158/85
[2024-08-01] MEDS ORDERED: INSULIN LISPRO 100 UNIT/ML ML SUB-Q SCH (21:00)
[2024-08-01] MEDS ORDERED: IBLOOD GLUCOSE TEST STRIP 1 EA TEST VI SCH (21:00)
--- NOTE | 2024-08-01 21:30 | NUR ---
PATIENT RESTING IN BED WATCHING TV. WOUND CARE DONE AND PICTURES TAKEN WITH VERBAL CONSENT. PATIENT'S RIGHT LEG IS WARM TO TOUCH FROM MID THIGH DOWN. RED STREAKING NOTED UP TO MID INNER THIGH. MARKED WITH PURPLE SKIN MARKER. LEG CLEANS WITH HIBACLEANSE. NON-ADHERENT DRESSING APPLIED OVER MULTIPLE SCABS ON CALF, BURTON, AND ANKLE. ALL WITH DRIED BLOOD AND SOME YELLOW DRAINAGE NOTED ON CHUCKS. LOWER LEG LOOSELY WRAPPED WITH KERLEX AND FRESH MARILU UNDER. ELEVATED ON PILLOW. GROIN AND PANIS PUSTULES NOTED IN MULTIPLE STAGES OF OPEN AND DRAINING TO HEALING. PATIENT SEES AN MD AT [facility] FOR THIS CHRONICALLY. AREA CLEANED. PUSTULES DRAINING LEFT ARMPIT ALSO NOTED. AREA CLEANED AND COVERED WITH NON-ADHERENT AND GAUZE. NEW GOWN PROVIDED. PATIENT VS STABLE. HR ELEVATED 115. BP WNL. TOLERATING ROOM AIR. ORAL TEMP ELEVATED; 100.8 F. PATIENT DENIES FEELING FEBRILE. ACCU CHECK DONE AND SSI PER ORDER. IV FLUIDS PER ORDER. IV SITE WNL. CALL LIGHT IN REACH. LIGHTS DIMMED FOR REST.
[2024-08-01] MEDS ORDERED: ACETAMINOPHEN 500 MG TAB PO PRN (22:15)
--- NOTE | 2024-08-01 22:15 | NUR ---
DISCUSSED PATIENT'S CURRENT VS AND TEMP WITH MD. ORDER RECEIVED FOR PO TYLENOL. VERIFIED VIA REPEAT BACK METHOD.
--- NOTE | 2024-08-01 23:04 | NUR ---
PATIENT RESTING WITH EYES CLOSED. WAKES EASILY TO VOICE. ORAL TEMP DECREASING. OFFERED PRN TYLNEOL; PATIENT DECLINED AT THIS TIME. KNOWS IT IS AVAILABLE. CALL LIGHT IN REACH.
[2024-08-01 23:06] VITALS: BP 159/75
[2024-08-02] VITALS (9 sets, daily range): BP systolic 130–163; BP diastolic 77–104
--- NOTE | 2024-08-02 00:34 | NUR ---
PATIENT UP TO THE BSC TO HAVE BM. PATIENT TOLERATED ACTIVITY WITH SOME INCREASED PAIN IN RIGHT LEG DUE TO PRESSURE WITH STANDING. PATIENT HAVE VERY LARGE ROSA BM. ASSISTED PATIENT TO CLEAN HIMSELF. PATIENT VOIDED TO EXTRENAL MALE CATH. SAMPLE COLLECTED PER ORDER. URINE IS LATRICE COLORED. PATIENT BACK TO BED. IV FLUIDS CONTINUED. VS STABLE. PATIENT DENIED ANY FURTHER NEEDS OR CONCERNS. CALL LIGHT IN REACH.
[2024-08-02 01:04] LABS: BILIRUBIN, URINE NEGATIVE (negative); BLOOD/HGB, URINE LARGE (Negative); CHLORIDE, RANDOM URINE 94 mmol/L (NOT ESTABLISHED); CREATININE, RANDOM URINE 91.41 mg/dL (NOT ESTABLISHED); KETONE, URINE NEGATIVE (Negative); LEUK ESTERASE, URINE NEGATIVE (negative); NITRITE, URINE NEGATIVE (negative); SODIUM, RANDOM URINE 64 mmol/L (NOT ESTABLISHED)
[2024-08-02 01:12] LABS: BACTERIA, URINE 4+ /hpf (negative); CRYSTALS, URINE NONE SEEN (0-1+); EPITHELIAL CELLS, URINE SQUAMOUS 1+ /lpf (0-1+); RED BLOOD CELLS, URINE 41-50 /hpf (0-5)
[2024-08-02 01:13] LABS: CASTS, URINE GRANULAR 1+ \\lpf; COLLECTION TYPE, URINE CLEAN CATCH; REFLEX CULTURE, URINE Yes (No)
[2024-08-02 01:33] LABS: AMPHETAMINES, URINE NEGATIVE (NEGATIVE); BARBITURATES, URINE NEGATIVE (NEGATIVE); BENZODIAZEPINE, URINE NEGATIVE (NEGATIVE); BUPRENORPHINE, URINE NEGATIVE (NEGATIVE); CANNABINOID, URINE NEGATIVE (NEGATIVE); COCAINE, URINE NEGATIVE (NEGATIVE); ECSTASY, URINE NEGATIVE (NEGATIVE); FENTANYL, URINE NEGATIVE (NEGATIVE); METHADONE, URINE NEGATIVE (NEGATIVE); OPIATES, URINE POSITIVE (NEGATIVE); OXYCODONE, URINE NEGATIVE (NEGATIVE); PHENCYCLIDINE, URINE NEGATIVE (NEGATIVE)
--- NOTE | 2024-08-02 02:00 | NUR ---
PATIENT APPEARS TO BE RESTING COMFORTABLY. CALL LIGHT IN REACH.
--- NOTE | 2024-08-02 04:05 | NUR ---
PATIENT CALLS TO ALERT STAFF THAT HE HAS VOIDED. URINE COLLECTED IN SUCTION CANISTER TRANSFERED TO 24 HOUR URINE COLLECTION BOTTLE WHICH IS ON ICE. PATIENT REPORTS FEELING WELL AND HAVING SLEPT SOME. PATIENT ORAL TEMP IS MORE ELEVATED AT THIS TIME. HR ELEVATED TO 125 BPM. PO TYLENOL AND FRESH ICE WATER PROVIDED. COOL WASH CLOTH PLACED ON FOREHEAD. PATIENT DENIED OTHER NEEDS OR CONCERNS. CALL LIGHT IN REACH.
--- NOTE | 2024-08-02 05:36 | NUR ---
MORNING LABS DRAWN PER ORDER. PATIENT REPORTS FEELING WELL BUT IS TIRED AND UNABLE TO SLEEP. OFFERED OPTIONS TO MAKE PATIENT MORE COMFORTABLE WHICH HE DECLINED. IV FLUIDS INFUSING PER ORDER. IV SITE WNL X2. RIGHT LEG ELEVATED ON PILLOW. ORAL TEMP HAS IMPROVED. PATIENT DECLINED ANY NEEDS. CALL LIGHT IN REACH.
[2024-08-02 05:37] LABS: BASOPHILS 0.2 % (0-2); EOSINOPHILS 0.5 % (0-6); HEMATOCRIT 24.6 % (35.0-50.0); LYMPHOCYTES 16.4 % (24-44); MCH 26.7 (27-36); MCHC 32.4 g/dl (30-36); MCV 82.4 fl (81-99); MONOCYTES 11.9 % (0-12); PLATELET COUNT 165 K/uL (140-440); RBC 2.99 M/ul (4.3-5.7); RDW 15.2 (10.5-15.0)
[2024-08-02 05:53] LABS: ALBUMIN 1.6 g/dL (3.4-5.0); ALBUMIN/GLOBULIN RATIO 0.37 (1.1-2.4); ANION GAP 8.7 (7-21); BILIRUBIN, TOTAL 0.5 ng/dL (0.2-1.0); BUN/CREATININE RATIO 11.82 (6.0-28.6); CALCIUM 7.1 mg/dL (8.5-10.1); CREATININE, SERUM 0.93 mg/dL (0.70-1.30); MAGNESIUM 1.4 mg/dL (1.8-2.4); POTASSIUM 2.7 mmol/L (3.5-5.1); PROTEIN, TOTAL 5.9 g/dL (6.4-8.2)
--- NOTE | 2024-08-02 06:30 | NUR ---
DISCUSSED PATIENT'S LABS WITH NEW ORDERS RECEIVED; VERIFIED VIA REPEAT BACK METHOD.
[2024-08-02] MEDS ORDERED: MAGNESIUM SULFATE 2 GM/50 ML BAG IV SCH (06:45)
[2024-08-02] MEDS ORDERED: POTASSIUM CHLORIDE 40 MEQ,LIDOCAINE HCL 1% 40 MG in DEXTROSE 5% 250 ML IV ONE (07:30)
--- NOTE | 2024-08-02 07:30 | NUR ---
REPORT RECEIVED FROM MARY SIERRA. PATIENT IS RESTING IN BED. IVF INFUSING.
[2024-08-02] MEDS ORDERED: POTASSIUM CHLORIDE 10 MEQ TABCR PO ONE (08:00)
--- NOTE | 2024-08-02 09:00 | NUR ---
ECHO BEING DONE AT BEDSIDE.
[2024-08-02] MEDS ORDERED: OZEMPIC1 MG/0.71 SUB-Q (09:04)
[2024-08-02] MEDS ORDERED: DULOXETINE HCL60 MG PO (09:05)
[2024-08-02] MEDS ORDERED: DAPTOmycin 500 MG/10 ML VIAL IV SCH (09:30)
--- NOTE | 2024-08-02 10:26 | NUR ---
RESTING, WATCHING TV. IVF INFUSING. DENIES NEED FOR PAIN MED.
--- NOTE | 2024-08-02 10:45 | NUR ---
Spoke with Sage. 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 He lives in a house with 1 step and did have issues getting in and out of his house. Pt is having further workup today. He is interested in having a cane or walker depending on how much he improves during his stay. He does not have any financial issues. He drives. His cousin lives with him, but is gone the majority of the time. Pt denies needs at this time. May need a walker on dc.
[2024-08-02] MEDS ORDERED: IRON325 M1 PO (10:50)
[2024-08-02] MEDS ORDERED: MULTI VITAMIN1 EACH PO (10:50)
--- NOTE | 2024-08-02 10:51 | NUR ---
MED REC COMPLETE
--- NOTE | 2024-08-02 11:01 | NUR ---
UR CLINICAL REVIEW: [facility] [place] [facility] [facility]PT 08/01/24 @ 1802 ORDER MATCHES REG CLINICALS FAXED TO [facility] FOR REVIEW DISCHARGE TO HOME WHEN STABLE 08/04/24
--- NOTE | 2024-08-02 11:30 | NUR ---
OOB TO CHAIR. C/O INCREASE PAIN IN RIGHT LEG WITH MOVMENT. FOOT REST ON CHAIR TO UP POSITION. RLL REMAINS WRAPPED WITH GAUZE.
[2024-08-02] MEDS ORDERED: PHARMACY RENAL DOSE ADJUSTMENT 1 DOSE MISC PO SCH (12:00)
--- NOTE | 2024-08-02 12:40 | NUR ---
TOOK LUNCH WELL. REQUESTING TO GO BACK TO BED. C/O HEADACHE.
--- NOTE | 2024-08-02 12:50 | NUR ---
TYLENOL 1000 MG PO GIVEN FOR MILES AND RIGHT LEG PAIN.
--- NOTE | 2024-08-02 14:45 | NUR ---
PHYSICAL THERAPY HERE TO WORK WITH PATIENT.
--- NOTE | 2024-08-02 19:40 | NUR ---
REPORT RECEIVED FROM DAY SHIFT RN AMINAH. PATIENT RESTING IN BED AT THIS TIME ON PHONE WITH FAMILY. NO NEEDS AT THIS TIME. CALL LIGHT WITHIN REACH.
--- NOTE | 2024-08-02 20:01 | NUR ---
CALL LIGHT ANSWERED. PATIENT WANTING RN TO KNOW HE IS DONE VISITING WITH FAMILY. NO NEEDS AT THIS TIME. CALL LIGHT WITHIN REACH.
--- NOTE | 2024-08-02 21:21 | NUR ---
PATIENT RESTING IN BED TALKIN ON PHONE WITH FAMILY. VSS, NOTED THAT BP IS ELEVATED PATIENT REPORTS HE HAS HTN BUT HAS NOT TAKEN THE MEDICATIONS FOR A YEAR. RN EDUCATED PATIENT ON HTN AND RISKS OF UNTREATED HTN. PATIENT STATED, "I'LL BE FINE, MY DOCTOR SAID IT WILL ONLY PROLONG MY LIFE BY 10 YEARS." PATIENT C/O HEARTBURN, NIO ENTERED FOR MAALOX. LUNGS CTA, AFEBRILE, BOWEL TONES ACITVE X 4 QUADRANTS. DRESSING TO LEFT AXILLARY CDI. REDNESS TO RLE WITHIN MARGINS, NOTED TO BE WARM TO THE TOUCH. BILATERAL PEDAL PULSES PALPABLE. IV SITE PATENT. IVF INFUSING WITH NO ISSUES OR CONCERNS. 24 HOUR URINE COLLECTION CONTINUES. PT DENIES THE NEED TO VOID AT THIS TIME. WILL PUSH CALL LIGHT AFTER HIS NEXT VOID. FRESH ICE WATER GIVEN. NO FURTHER NEEDS AT THIS TIME. CALL LIGHT WITHIN REACH.
[2024-08-02] MEDS ORDERED: MAGNESIUM HYDROXIDE/AL HYDROX 30 ML CUP PO PRN (21:30)
--- NOTE | 2024-08-02 23:30 | NUR ---
PATIENT RESTING IN BED. RESPIRATIONS EVEN AND UNLABORED. PATIENT ENCOURAGED TO TRY AND VOID. CALL LIGHT WITHIN REACH.
--- NOTE | 2024-08-02 23:45 | NUR ---
CALL LIGHT ANSWERED. PATIENT WITH VOID OF 400MLS TEA COLORED URINE. URINE ADDED TO 24 HOUR URINE COLLECTION JUG. NO FURTHER NEEDS AT THIS TIME. CALL LIGHT WITHIN REACH.
[2024-08-03] VITALS (11 sets, daily range): BP systolic 147–176; BP diastolic 73–96
--- NOTE | 2024-08-03 01:33 | NUR ---
PATIENT RESTING IN BED AWAKE. DENIES ANY NEEDS AT THIS TIME IVF INFUSING WITH NO CONCERNS. CALL LIGHT WITHIN REACH.
--- NOTE | 2024-08-03 03:30 | NUR ---
PATIENT RESTING IN BED WITH EYES CLOSED. RESPIRATIONS EVEN AND UNLABORED. CALL LIGHT WITHIN REACH.
--- NOTE | 2024-08-03 05:30 | NUR ---
URINE REHABILITATION PROGRAM COORDINATOR IN COLOR THIS AM. CLOSER TO LATRICE IN COLOR COMPARED TO TEA COLORED NOTED EARILER IN THE SHIFT. PATIENT BP ELEVATED THIS AM. DENIES ANY VISION CHANGES, MILES OR DIZZINESS. PATIENT RLE REMAINS UNCHANGED REDNESS REMAINS WITHIN THE MARGINS. NO FURTHER NEEDS AT THIS TIME. CALL LIGHT WITHIN REACH.
[2024-08-03 05:39] LABS: BASOPHILS 0.3 % (0-2); EOSINOPHILS 1.7 % (0-6); HEMATOCRIT 24.4 % (35.0-50.0); HEMOGLOBIN 7.9 g/dL (12.0-18.0); LYMPHOCYTES 19.3 % (24-44); MCH 26.4 (27-36); MCHC 32.2 g/dl (30-36); MONOCYTES 7.1 % (0-12); NEUTROPHILS 71.6 % (39-80); PLATELET COUNT 224 K/uL (140-440); RBC 2.98 M/ul (4.3-5.7); RDW 15.3 (10.5-15.0)
[2024-08-03 05:49] LABS: ANION GAP 9.4 (7-21); BUN/CREATININE RATIO 10.22 (6.0-28.6); CALCIUM 8.9 mg/dL (8.5-10.1); CREATININE, SERUM 0.88 mg/dL (0.70-1.30); POTASSIUM 3.4 mmol/L (3.5-5.1)
--- NOTE | 2024-08-03 06:46 | NUR ---
MD NOTIFIED OF PATIENT'S ELEVATED BP. TELEPHONE ORDERS RECEIVED FOR LASIX 40MG IV X 1 NOW AND TO DC HIS MAINTANCE FLUIDS. ORDERS VERIFIED VIA VERBAL READ BACK.
[2024-08-03] MEDS ORDERED: FUROSEMIDE 40 MG/4 ML VIAL ONE (06:55)
[2024-08-03] MEDS ORDERED: FUROSEMIDE 40 MG/4 ML VIAL IV ONE (07:00)
--- NOTE | 2024-08-03 07:30 | NUR ---
REPORT RECEIVED FROM MEASURING CLERK. PATIENT IS RESTING IN BED. USING MALE PUREWICK TO VOID.
[2024-08-03 08:42] LABS: HIV 1,2 COMBO ANTIGEN/ANTIBODY Negative (Negative)
--- NOTE | 2024-08-03 09:00 | NUR ---
REFUSED BREAKFAST. ASSESSMENT DONE. C/O SLIGHT MILES. DENIES NEED FOR PAIN MEDICATION. RIGHT LEG LESS PINK TODAY. PATIENT STATES HIS LEG IS BETTER TODAY. ELEVATED ON PILLOW. DRESSING TO LOWER RIGHT LEG INTACT. PATIENT TOOK OFF DRESSING TO LEFT AXILLARY AREA. VERY MINIMAL DRAINAGE NOTED. PUREWICK OFF. MONICA AREA CLEANSED WITH SOAP AND WATER. PATIENT REFUISNG SHOWER. UP TO CHAIR. USING WALKER WITH TRANSFERS. HAS INCREASE DISCOMFORT TO RIGHT LEG WITH MOVEMENT. PATIENT AWARE OF PENDING TRARANFER TO MED-SURG. HAS BEEN VOING LARGE AMOUNT OF CLEAR YELLOW URINE SINCE LASIX GIVEN EARLIER. DR. HOWELL HERE TO SEE PATIENT.
[2024-08-03 10:03] LABS: HEPATITIS A ANTIBODY, IGM Negative (Negative); HEPATITIS B CORE ANTIBODY, IGM Negative (Negative); HEPATITIS B SURFACE ANTIGEN Negative (Negative); HEPATITIS C AB CIA INTERP Negative (Negative); HEPATITIS C ANTIBODY CIA INDEX 0.17 IV (())
[2024-08-03 10:41] LABS: FERRITIN 218 ng/mL (30-400)
--- NOTE | 2024-08-03 10:50 | NUR ---
REPORT TO MED-SURG. PATIENT TO MED-SURG VIA CHAIR.
--- NOTE | 2024-08-03 10:51 | NUR ---
REPORT RECEIVED FROM MARIELA BURR.
[2024-08-03] MEDS ORDERED: LOSARTAN POTASSIUM 25 MG TAB PO SCH (11:18)
--- NOTE | 2024-08-03 11:26 | NUR ---
PATIENT SCOOTING AROUND THE ROOM IN THE CHAIR. DEE DEE COREY IS IN THE ROOM GETTING A BLOOD SUGAR AT THIS TIME. PATIENT STATED NO FURTHER NEEDS. CALL LIGHT AND PERSONAL BELONGINGS ARE WITHIN REACH.
[2024-08-03] MEDS ORDERED: DULOXETINE HCL 60 MG CAP PO SCH (11:29)
--- NOTE | 2024-08-03 11:48 | NUR ---
PATIENT FOUND SITTING UP IN RECLINER, USING CHAIR WHEELCHAIR TO MOVE AROUND ROOM. THIS ASSISTED PATIENT INTO BED AND EDUCATED PATIENT ON IMPORTANCE OF USING CALL LIGHT FOR ASSISTANCE WHEN HE WANTS TO MOVE BACK TO CHAIR, FOR SAFETY. PATIENT VERBALIZES UNDERSANDING. CALL LIGHT AND PERSONAL ITEMS IN EASY REACH
--- NOTE | 2024-08-03 12:15 | NUR ---
MEDICATIONS ADMINISTERED PER THE EMAR. FULL ASSESSMENT COMPLETE AND DOCUMENTED IN THE CHART. PATIENT IS LYING IN BED WITH HOB LOWERED. PATIENT LUNCH TRAY PLACED ON THE BEDSIDE TABLE. PATIENT GIVEN A FRESH CUP OF ICE WATER. PATIENT IS ALERT AND ORIENTED TIMES FOUR. PATIENT IS ON ROOM AIR AND LUNG SOUNDS ARE CLEAR IN ALL LUNG CARLSON BILATERALLY. CARDIAC WITH NORMAL S1 AND S2 ON AUSCULTATION. RADIAL PULSES ARE STRONG BILATERALLY. PATIENT SENSATION INTACT WITH NO COMPLAINTS OF NUMBNESS AND TINGLING. PATIENT DOES HAVE CHRONIC NEUROPATHY. PATIENT HR IS TACHYCARDIC. IV SITE IN THE LAC AND THE RIGHT FOREARM BOTH FLUSHED WITH 10 ML NORMAL SALINE AND BOTH IV SITES ARE SALINE LOCKED. IV DRESSINGS ARE CLEAN, DRY, AND INTACT. PATIENT IS ON A 60 GRAM CARBOHYDRATE DIET AND HIS LAST BOWEL MOVEMENT WAS 08/02/24. BOWEL TONES ARE ACTIVE IN ALL FOUR QUADRANTS. PATIENT WITH OPEN SORES IN THE LEFT ARMPIT AND IN THE GROIN/MONICA AREA. OPEN SORES ARE OPEN TO AIR AT THIS TIME. RLE WITH GAUZE WRAPPED AROUND IT BELOW THE RIGHT KNEE. RLE DRESSING WITH DRY DRAINAGE NOTED ON THE DRESSING. PATIENT WITH PAIN RATED 3/10 IN THE RIGHT LOWER EXTREMITY. PATIENT STATED NO FURTHER NEEDS AT THIS TIME. CALL LIGHT AND PERSONAL BELONGINGS ARE WITHIN REACH.
--- NOTE | 2024-08-03 12:48 | NUR ---
NOTIFIED OF PATIENT POTASSIUM LEVEL OF 3.4. RN GOT TELEPHONE ORDER FOR 40 MEQ POTASSIUM CHLORIDE NOW AND THEN ANOTHER DOSE OF 40 MEQ POTASSIUM CHLORIDE TWO HOURS AFTER THE FIRST DOSE. RN PUT ORDER IN. MD WITH NO FURTHER ORDERS. CALL ENDED.
[2024-08-03] MEDS ORDERED: POTASSIUM CHLORIDE 10 MEQ TABCR PO ONE ×2 (13:00→15:00)
--- NOTE | 2024-08-03 13:14 | NUR ---
PATIENT SITTING UP IN BED AT THIS TIME. VITALS AND I&O'S DONE AND CHARTED. CALL LIGHT IN REACH. NO FURTHER NEEDS AT THIS TIME.
--- NOTE | 2024-08-03 13:50 | NUR ---
PATIENT 1300 POTASSIUM CHLORIDE DOSE ADMINSITERED PER THE EMAR. PATIENT WITH HIS MOM SITTING IN THE CHAIR AT BEDSIDE. PATIENT STATED NO FURTHER NEEDS AT THIS TIME. CALL LIGHT AND PERSONAL BELONGINGS ARE WITHIN REACH.
--- NOTE | 2024-08-03 14:14 | NUR ---
PATIENT IS SITTING UPRIGHT IN BED WITH EYES OPEN AND RESPIRATIONS ARE EVEN AND UNLABORED. PATIENT WITH HIS MOM AT THE BEDSIDE. CALL LIGHT AND PERSONAL BELONGINGS ARE WITHIN REACH.
[2024-08-03 14:27] LABS: COMPLEMENT COMPONENT 3 149 mg/dL (90-180)
--- NOTE | 2024-08-03 14:31 | NUR ---
PT NOT AVAILABLE FOR VISIT. PT PRAYER.
[2024-08-03 14:33] LABS: COMPLEMENT COMPONENT 4 29 mg/dL (10-40)
[2024-08-03 15:05] LABS: ANTI-NUCLEAR AB ANA,IGG ELISA Detected (None Detected)
--- NOTE | 2024-08-03 15:44 | NUR ---
PATIENT IS LYING IN BED WITH HOB ELEVATED. PATIENT PRN TYLENOL ADMINSTERED FOR A HEADACHE PER PATIENT REPORT. PATIENT REFUSED POTASSIUM CHLORIDE 1500 DOSE. PATIENT EDUCATED ON THE IMPACT OF LOW POTASSIUM LEVEL. PATIENT EXPRESSED UNDERSTANDING. URINAL DUMPED AT THIS TIME. PATIENT WITH HIS MOM SITTING IN THE CHAIR AT BEDSIDE. PATIENT STATED NO FURTHER NEEDS AT THIS TIME. CALL LIGHT AND PERSONAL BELONGINGS ARE WITHIN REACH.
--- NOTE | 2024-08-03 16:39 | NUR ---
PATIENT IS SITTING UPRIGHT IN BED AND LOOKING ON THEIR PHONE. RESPIRATIONS ARE EVEN AND UNLABORED. PATIENT WITH HIS MOM SITTING IN THE CHAIR AT BEDSIDE. CALL LIGHT AND PERSONAL BELONGINGS ARE WITHIN REACH.
--- NOTE | 2024-08-03 17:40 | NUR ---
PATIENT AWAKE IN BED, VITALS AND I&OS CHARTED. PATIENT REFUSED DINNER, REFUSED ANY OTHER OPTIONS THIS DISPATCH OFFICER OFFERED WELL. SEVERAL SNACKS ON BEDSIDE TABLE. MOTHER IN ROOM, MOTHER EATING DINNER TRAY. CALL LIGHT IN EASY REACH, NO OTHER NEEDS AT THIS TIME
--- NOTE | 2024-08-03 18:07 | NUR ---
PATIENT IS LYING IN BED WITH HOB ELEVATED. PATIENT WITH HIS MOM IN THE ROOM. PATIENT WITH NO COMPLAINTS OF HEADACHE OR PAIN. PATIENT STATES "I AM TRYING TO TAKE A NAP". PATIENT STATED NO FURTHER NEEDS AT THIS TIME. CALL LIGHT AND PERSONAL BELONGINGS ARE WITHIN REACH.
--- NOTE | 2024-08-03 19:34 | NUR ---
@ 1905 RECEIVED REPORT FROM JOLANTA, ELISABETH SELF, WHITE BOARD UPDATED. FRESH ICE GIVEN FOR HIS DIET PEPSI, NO OTHER NEEDS. MOM AT BEDSIDE.
--- NOTE | 2024-08-03 21:00 | NUR ---
ASSESSMENT COMPLETED. WOUND RIGHT LEG [place] COVERED WITH ADAPTIC WITH OPTIFOAM DRESSING. LOWER WOUNDS COVERED WITH OPTIFOAM GENTLE DRESSING. WILL PUT IN A WOUND CONSULT. PT STATES THE WOUND [place] IS CHRONIC. HE HAS HAD WOUND CARE IN THE PAST, HAS USED MEDIHONEY AT HOME ON THAT WOUND. PICURES IN CHART FROM ADMISSION. REDDNESS WITHIN THE BOUNDARIES, PINK IRREGULAR SHAPED, NOT HOT TO THE TOUCH. FRESH ICE WATER, AND ICE FOR HIS DIET PEPSI GIVEN. URINAL AT BEDSIDE. ALL PERSONAL SUPPLIES WITH REACH. NO OTHER NEEDS REPORTED.
--- NOTE | 2024-08-03 21:29 | NUR ---
PT REQUESTED A SHOWER. CIRCUIT BOARD DRAFTER COVERED PT IV SITES. CIRCUIT BOARD DRAFTER ASSISTED PT TO SHOWER CHAIR AND GAVE PT WASHCLOTHES, SOAP, AND TOWELS. PT ABLE TO SHOWER INDEPENDENTLY IN SHOWER CHAIR. CIRCUIT BOARD DRAFTER REMAINED IN ROOM AND CHANGED BED LINENS AND CLEANED TRASH FROM BEDSIDE TABLES. PT GIVEN CLEAN BREIF AND GOWN. PT ASSISTED BACK TO BED. IV COVERS REMOVED. PT RIGHT LEG ELEVATED ON PILLOW. PT STATES NO FURTHER NEEDS AT THIS TIME. CALL LIGHT PLACED WITHIN REACH.
[2024-08-03 22:50] LABS: MYELOPEROXIDASE (MPO) AB,IGG 1 AU/mL (0-19); SERINE PROTEINASE 3 PR3 AB,IGG 2 AU/mL (0-19)
--- NOTE | 2024-08-04 02:08 | NUR ---
ROUNDED ON PT, LAYING ON LEFT SIDE, COVERED WITH BLANKETS, FEET MOVING SOME. RESP EVEN AND UNLABORED.
[2024-08-04 04:47] VITALS: BP 144/75
--- NOTE | 2024-08-04 04:50 | NUR ---
IT BUSINESS ANALYST OBTAINED VITALS AND I&O. PT STATES NO NEEDS AT THIS TIME. CALL LIGHT WITHIN REACH.
--- NOTE | 2024-08-04 04:50 | NUR ---
ROUNDED ON PT, PT AWAKE, OFFERED AND ACCEPTED WARM BLANKETS. ASKED ABOUT WHEN TO ORDER BREAKFAST, PLACED PHONE NEAR HIM TO DO SO. RIGHT LEG REMAINS UNCHANGED, OR SL LESS PINK. DENIES CHANGES HIMSLEF.
[2024-08-04 04:52] VITALS: BP 144/75
--- NOTE | 2024-08-04 05:06 | NUR ---
PT A/O THIS SHIFT, RA, REMAINED IN BED. USED URINAL FOR VOIDINGS, TOOK A SHOWER WITH ASSIST FROM GRADUATION COACH. PT STATED MUCH RELIEF NO SHOWER SINCE LAST THURSDAY. CELLULITIS IN RIGHT LEG REMAINS PINK, AREA MARKED, WITHIN BOUNDARIES. WOUND ON RLE, COVERED, DRAINING, WOUND CONSULT ORDERED. RECEIVED A SNACK, BS WAS 101 AT HS. STATES WHEN HE FIRST STANDS UP HIS RIGHT LEG THROBS THE "BLOOD" GOES DOWN LEG, BUT HAS DECREASED SOME SINCE ADMISSION. NO VISUAL BLOOD IN URINE.
[2024-08-04 05:39] LABS: BASOPHILS 0.4 % (0-2); EOSINOPHILS 2.4 % (0-6); HEMATOCRIT 28.9 % (35.0-50.0); HEMOGLOBIN 9.4 g/dL (12.0-18.0); LYMPHOCYTES 24.8 % (24-44); MCH 26.7 (27-36); MCHC 32.5 g/dl (30-36); MCV 82.3 fl (81-99); MONOCYTES 7.5 % (0-12); NEUTROPHILS 64.9 % (39-80); PLATELET COUNT 253 K/uL (140-440); RBC 3.51 M/ul (4.3-5.7); RDW 15.6 (10.5-15.0)
[2024-08-04 05:48] LABS: ANION GAP 8.6 (7-21); BUN/CREATININE RATIO 14.45 (6.0-28.6); CALCIUM 9.1 mg/dL (8.5-10.1); CREATININE, SERUM 0.83 mg/dL (0.70-1.30); MAGNESIUM 1.9 mg/dL (1.8-2.4); POTASSIUM 3.6 mmol/L (3.5-5.1)
--- NOTE | 2024-08-04 06:58 | NUR ---
Pt report received from MARIELA Herrera. Pt is awake, resting supine in bed. Water refreshed, white board updated, urinal emptied of 400ml emily colored urine. Pt denied other needs at this time. Call light in reach.
--- NOTE | 2024-08-04 07:31 | NUR ---
TOOK PT BLOOD SUGAR AND CHARTED IT ASKED PT IF HE WANTED TO GET UP FROM BED PT DENIED AND DIDNT NEED ANYTHING ELSE CALL LIGHT IS WITHIN REACH.
[2024-08-04 08:20] VITALS: BP 173/97
[2024-08-04] MEDS ORDERED: AMOX TR-K CLV1 EAC1 PO (09:47)
[2024-08-04] MEDS ORDERED: DOXYCYCLINE HY100 MG PO (09:48)
--- NOTE | 2024-08-04 10:30 | NUR ---
Spoke with Sage. He plans on going home today. His mom will be here in approximately 1 hour to take him home. They plan on stopping at [employer] to borrow a walker from their lending closet. Pt denies other needs. Mom will help if needed. He denies needing a release from work as the [employer] let him know he can return whenever he wants.
--- NOTE | 2024-08-04 10:36 | NUR ---
Pt IV in right forearm is showing some redness at insertion site, and pt reports tenderness with palpation. IV flushes well, good blood return.
[2024-08-04] MEDS ORDERED: LOSARTAN POTASS25 MG PO (10:45)
[2024-08-04 11:52] VITALS: BP 168/92
[2024-08-04 14:58] LABS: LACTATE DEHYDROGENASE - 1 23 % (14-27); LACTATE DEHYDROGENASE - 2 33 % (29-42); LACTATE DEHYDROGENASE - 3 23 % (18-30); LACTATE DEHYDROGENASE - 4 9 % (8-15); LACTATE DEHYDROGENASE - 5 12 % (6-23); LACTATE DEHYDROGENASE,TOTAL 140 U/L (105-230)
[2024-08-04 17:30] LABS: ANA PATTERN Speckled (()); ANTINUCLEAR AB (ANA),HEP-2,IGG Detected (<1:80)
[2024-08-05 12:45] LABS: DOUBLE-STRANDED DNA IGG ELISA 9 IU (0-24)
[2024-08-05 14:27] LABS: SMITH/RNP (ENA) AB, IGG 15 Units (0-19)
[2024-08-05 19:56] LABS: UREA NITROGEN,URINE G/DAY 0.5 g/d (12.0-20.0)
[2024-08-06 10:50] LABS: JO-1 HISTIDYL-TRNA SYNTHET,IGG 2 AU/mL (0-40); SCLERODERMA (SCL-70) AB,IGG 2 AU/mL (0-40); SMITH (ENA) ANTIBODY, IGG 9 AU/mL (0-40)
[2024-08-06 10:51] LABS: SSA-52 (RO52) (ENA) AB, IGG 20 AU/mL (0-40); SSA-60 (RO60) (ENA) AB, IGG 0 AU/mL (0-40); SSB (LA) (ENA) ANTIBODY, IGG 0 AU/mL (0-40)
== END 2024-08-04 12:30 | disposition home or self-care (01) | DRG 603 ==
LOC: ED 13:01 → CCU 18:02 → MS 08-03 10:40
PROVIDERS: Emergency Medicine; Student in an Organized Health Care Education/Training Program; ADMIT Internal Medicine; ATTEND Internal Medicine
DX: L03.115 Cellulitis of right lower limb (principal); N39.0 Urinary tract infection, site not specified; Z88.8 Allergy status to other drugs, medicaments and biological substances; R31.0 Gross hematuria; E11.42 Type 2 diabetes mellitus with diabetic polyneuropathy; E78.00 Pure hypercholesterolemia, unspecified; I10 Essential (primary) hypertension; Z98.890 Other specified postprocedural states; Z79.51 Long term (current) use of inhaled steroids; F17.220 Nicotine dependence, chewing tobacco, uncomplicated
CPT/HCPCS: 36415; 36592; 71045; 74176; 76700; 76775; 80048; 80053; 80061; 80074; 80307; 81001; 82040; 82436; 82553; 82570; 82728; 83036; 83605; 83735; 84156; 84300; 84550; 85025; 85379; 85610; 85651; 85730; 86038; 86140; 86161; 87040; 87088; 93306; 93971; 97110; 97116; 97162; 97166; 97530; A9270; J0692; J0696; J0878; J1170; J1815; J1940; J2405; J3370; J3475; J3480; J3490; J7030; J7060

== ENCOUNTER 2024-08-22 19:44 | Emergency (ER) | payer OTHER ==
[~2024-08-22] VITALS: Ht 188 cm; Wt 105.0 kg
[~2024-08-22 19:44] MED LIST changes: +AMOX TR-K CLV1 EAC1 PO; +DOXYCYCLINE HY100 MG PO; +DULOXETINE HCL60 MG PO; +IRON325 M1 PO; +LOSARTAN POTASS25 MG PO; +MULTI VITAMIN1 EACH PO; +OZEMPIC1 MG/0.71 SUB-Q
--- OUTSIDE RECORDS SUMMARY | 2024-08-22 19:51 | XMS ---
PreManage Notification: HAIDER DE LEÓN Security Support Merchandiser Events No recent Security Events currently on file CRITERIA MET - [facility] - 2 Visits in 30 Days CARE PROVIDERS There are no care providers on record at this time. Tima has no Care Guidelines for this patient. Angy VISIT COUNT (12 MO.) 5 [facility] [place] TOTAL 5 NOTE: Visits indicate total known visits. ED/C VISIT TRACKING (12 MO.) 08/22/2024 19:[address] [facility] [place] TYPE: Emergency COMPLAINT: - CONSTIPATION 08/01/2024 13:01 [facility] [place] TYPE: Emergency COMPLAINT: - WEAKNESS 02/09/2024 12:57 [facility] [place] TYPE: Emergency COMPLAINT: - COLD/FLU SYMPTOMS, FAINT FEELING DIAGNOSES: - Acute pharyngitis, unspecified - Allergy status to other drugs, medicaments and biological substances - COVID-19 - Essential (primary) hypertension - Long-term (current) use of injectable non-insulin antidiabetic drugs - Other buttermaker continuous churn (current) drug therapy - Pure hypercholesterolemia, unspecified - Type 2 diabetes mellitus with diabetic polyneuropathy 01/21/2024 18:22 [facility] [place] TYPE: Emergency COMPLAINT: - DIZZINESS DIAGNOSES: - Allergy status to other drugs, medicaments and biological substances - Dehydration - Dizziness and giddiness - Essential (primary) hypertension - intermediate project manager (current) use of oral hypoglycemic drugs - Other nursing home (current) drug therapy - Pure hypercholesterolemia, unspecified - Type 2 diabetes mellitus with diabetic polyneuropathy 11/09/2023 21:47 [facility] [place] TYPE: Emergency COMPLAINT: - POSS DEHYDRATION DIAGNOSES: - Allergy status to other drugs, medicaments and biological substances - Dehydration - Dizziness and giddiness - Essential (primary) hypertension - Hypo-osmolality and hyponatremia - Long-term (current) use of injectable non-insulin antidiabetic drugs - Other buttermaker continuous churn (current) drug therapy - Pure hypercholesterolemia, unspecified - Type 2 diabetes mellitus with diabetic polyneuropathy INPATIENT VISIT TRACKING (12 MO.) 08/01/2024 18:02 [facility] [place] TYPE: [facility] COMPLAINT: - RLE CELLULITIS HEMATURIA DIAGNOSES: - Allergy status to other drugs, medicaments and biological substances - Allergy status to other drugs, medicaments and biological substances - Cellulitis of right lower limb - Essential (primary) hypertension - Essential (primary) hypertension - Gross hematuria - Gross hematuria - MCC (current) use of inhaled steroids - intermediate project manager (current) use of inhaled steroids - Nicotine dependence, chewing tobacco, uncomplicated - Nicotine dependence, chewing tobacco, uncomplicated - Other specified postprocedural states - Other specified postprocedural states - Pure hypercholesterolemia, unspecified - Pure hypercholesterolemia, unspecified - Type 2 diabetes mellitus with diabetic polyneuropathy - Type 2 diabetes mellitus with diabetic polyneuropathy - Urinary tract infection, site not specified - Urinary tract infection, site not specified [email or web address]
[2024-08-22] MEDS ORDERED: MORPHINE SULFATE 4 MG/ML VIAL IV ONE ×2 (20:15→22:45)
[2024-08-22] MEDS ORDERED: ondansetron HCL 4 MG/2 ML VIAL IV ONE (20:15)
[2024-08-22 20:41] LABS: BASOPHILS 0.6 % (0-2); EOSINOPHILS 1.8 % (0-6); HEMATOCRIT 37.5 % (35.0-50.0); LYMPHOCYTES 20.1 % (24-44); MCH 26.5 (27-36); MONOCYTES 7.9 % (0-12); NEUTROPHILS 69.6 % (39-80); PLATELET COUNT 285 K/uL (140-440); RBC 4.51 M/ul (4.3-5.7); RDW 16.1 (10.5-15.0)
[2024-08-22 20:57] LABS: ALBUMIN 3.3 g/dL (3.4-5.0); ALBUMIN/GLOBULIN RATIO 0.55 (1.1-2.4); ANION GAP 12.8 (7-21); BILIRUBIN, TOTAL 0.8 ng/dL (0.2-1.0); BUN/CREATININE RATIO 12.74 (6.0-28.6); CALCIUM 9.8 mg/dL (8.5-10.1); CREATININE, SERUM 1.02 mg/dL (0.70-1.30); POTASSIUM 3.8 mmol/L (3.5-5.1); PROTEIN, TOTAL 9.3 g/dL (6.4-8.2)
[2024-08-22] MEDS ORDERED: EZETIMIBE10 MG PO (20:59)
[2024-08-22] MEDS ORDERED: COLACE100 MG PO (22:44)
[2024-08-22] MEDS ORDERED: AMOX TR-K CLV1 EAC1 PO (22:44)
[2024-08-22] MEDS ORDERED: TRAMADOL HCL 50 MG HOME.PACK PO ONE (22:45)
[2024-08-22] MEDS ORDERED: MINERAL OIL 133 ML BTL PR ONE (22:45)
[2024-08-22] MEDS ORDERED: PIPERACILLIN/TAZOBACTAM 4.5 GM in DEXTROSE 5% 100 ML IV ONE (22:45)
[2024-08-22] MEDS ORDERED: GLYCERIN 2 GM SUPP PR ONE (22:45)
[2024-08-22 22:48] LABS: BILIRUBIN, URINE NEGATIVE (negative); BLOOD/HGB, URINE LARGE (Negative); KETONE, URINE NEGATIVE (Negative); LEUK ESTERASE, URINE NEGATIVE (negative); NITRITE, URINE NEGATIVE (negative)
[2024-08-22] MEDS ORDERED: MAGNESIUM CITRATE 300 ML BTL PO ONE (23:00)
[2024-08-22 23:01] LABS: EPITHELIAL CELLS, URINE SQUAMOUS 1+ /lpf (0-1+); RED BLOOD CELLS, URINE 21-40 /hpf (0-5)
[2024-08-22] MEDS ORDERED: PIPERACILLIN/TAZOBACTAM 4.5 GM VIAL ONE (23:01)
[2024-08-22 23:02] LABS: BACTERIA, URINE RARE /hpf (negative); CASTS, URINE NONE SEEN \\lpf; COLLECTION TYPE, URINE CLEAN CATCH; CRYSTALS, URINE NONE SEEN (0-1+); REFLEX CULTURE, URINE No (No)
[2024-08-22] MEDS ORDERED: LIDOCAINE 2% VISCOUS 6 ML SYR TOP ONE (23:15)
[2024-08-23] MEDS ORDERED: LACTATED RINGER'S 1,000 ML IV ONE (00:30)
[2024-08-23] MEDS ORDERED: TRAMADOL HCL 50 MG HOME.PACK PO ONE (01:00)
[2024-08-23 01:20] VITALS: BP 148/92
== END 2024-08-23 01:20 | disposition home or self-care (01) ==
LOC: ED 19:44
PROVIDERS: Family Medicine
DX: K52.89 Other specified noninfective gastroenteritis and colitis (principal); K59.00 Constipation, unspecified; E11.42 Type 2 diabetes mellitus with diabetic polyneuropathy; I10 Essential (primary) hypertension; E78.00 Pure hypercholesterolemia, unspecified; Z88.8 Allergy status to other drugs, medicaments and biological substances; Z79.2 Long term (current) use of antibiotics; Z79.85 Long-term (current) use of injectable non-insulin antidiabetic drugs; Z79.899 Other long term (current) drug therapy
CPT/HCPCS: 36415; 51798; 74177; 80053; 81001; 85025; 96375; 96376; 99284-25; A9270; J2270; J2405; J2543; J7121; Q9967

== ENCOUNTER 2024-12-08 14:09 | Emergency (ER) | payer OTHER ==
[~2024-12-08] VITALS: Ht 190.5 cm; Wt 108.4 kg
[~2024-12-08 14:09] MED LIST changes: +COLACE100 MG PO; +EZETIMIBE10 MG PO
[2024-12-08] MEDS ORDERED: TADALAFIL2.5 MG PO (14:35)
[2024-12-08] MEDS ORDERED: METFORMIN HCL1000 M1 PO (14:36)
[2024-12-08 16:24] LABS: BASOPHILS 0.2 % (0-2); EOSINOPHILS 1.2 % (0-6); HEMATOCRIT 38.4 % (35.0-50.0); HEMOGLOBIN 12.6 g/dL (12.0-18.0); LYMPHOCYTES 45.3 % (24-44); MCH 28.3 (27-36); MCHC 32.9 g/dl (30-36); MONOCYTES 11.8 % (0-12); NEUTROPHILS 41.5 % (39-80); PLATELET COUNT 250 K/uL (140-440); RBC 4.47 M/ul (4.3-5.7); RDW 14.1 (10.5-15.0)
[2024-12-08] MEDS ORDERED: SODIUM CHLORIDE 0.9% 1,000 ML IV PRN (16:30)
[2024-12-08 16:32] LABS: ALBUMIN/GLOBULIN RATIO 0.48 (1.1-2.4); BILIRUBIN, TOTAL 0.4 ng/dL (0.2-1.0); BUN/CREATININE RATIO 10.52 (6.0-28.6); CALCIUM 9.1 mg/dL (8.5-10.1); CREATININE, SERUM 1.14 mg/dL (0.70-1.30); PROTEIN, TOTAL 9.2 g/dL (6.4-8.2)
[2024-12-08] MEDS ORDERED: HYDROCODON-ACE1 EA10 PO (18:41)
[2024-12-08 18:46] VITALS: BP 126/81
--- NOTE | 2024-12-08 22:31 | EKG ---
[facility] [address] [place] [address] Signed Normal sinus rhythm Left axis deviation Right bundle branch block Left anterior fascicular block Minimal voltage criteria for LVH, may be normal variant ( R in aVL ) Abnormal ECG When compared with ECG of 09-FEB-2024 13:23, No significant change was found Confirmed by Augusto Salmon MD () on 12/08/2024 10:30:51 PM Electronically Signed By: AUGUSTO SALMON MD 12/08/242230 PATIENT NAME: HAIDER DE LEÓN Electrocardiogram DATE OF : 76 PHYSICIAN: AUGUSTO SALMON MD REPORT #: [id number] REPORT IS CONFIDENTIAL AND NOT TO BE RELEASED WITHOUT AUTHORIZATION
== END 2024-12-08 18:46 | disposition home or self-care (01) ==
LOC: ED 14:09
PROVIDERS: Emergency Medicine
DX: S29.9XXA Unspecified injury of thorax, initial encounter (principal); R55 Syncope and collapse; E11.9 Type 2 diabetes mellitus without complications; I10 Essential (primary) hypertension; Z88.8 Allergy status to other drugs, medicaments and biological substances; Z79.84 Long term (current) use of oral hypoglycemic drugs; Z79.899 Other long term (current) drug therapy; W01.0XXA Fall on same level from slipping, tripping and stumbling without subsequent striking against object, initial encounter
CPT/HCPCS: 36415; 71101; 80053; 85025; 93005; 93010; 99285